=== PATIENT | female | born 1985 | race Caucasian/White ===

== ENCOUNTER → 2018-03-11 09:18 | Outpatient (CLI) | payer OTHER, SELFPAY ==
[2018-03-11 08:18] VITALS: BMI 18.3
[2018-03-11 09:42] LABS: Absolute Lymphocyte Count 1.81 X10^3/ul (0.83-4.51); Absolute Neutrophil Count 7.2 X10^3/uL (2.0-7.7); Basophil# 0.06 X10^3/uL; Basophil% 0.6 % (0-1); Eosinophil# 0.09 X10^3/uL; Eosinophils% 0.9 % (0-5); Hematocrit 35.9 % (37-47); Lymphocyte # 1.81 X10^3/ul (4.0); Lymphocyte % 17.8 % (19-41); Mean Corp Hgb Conc 33.4 g/gl (32-36); Mean Corpuscular Hgb 34.5 pg (27.0-32.0); Mean Corpuscular Volume 103.2 fL (81-99); Mean Platelet Vol. 10.3 fl (6.2-12.0); Monocyte# 1.04 X10^3/uL; Monocyte% 10.2 % (0-10); Neutrophil # 7.15 X10^3/uL (2.7-7.7); Neutrophil % 70.2 % (47-70); Platelet Count 425 K/mm3 (150-450); RBC Distribution Width CV 12.8 % (11.6-14.6); RBC Distribution Width SD 47.2 fl (35.1-43.9); Red Blood Count 3.48 M/mm3 (4.2-5.4); White Blood Count 10.2 K/mm3 (4.4-11.0)
[2018-03-11 09:44] LABS: POSITIVE COUNT NO; POSITIVE DIFFERENTIAL NO; POSITIVE MORPHOLOGY NO
[2018-03-11 11:14] LABS: HIV - WCH Non-Reactive (Nonreactive)
[2018-03-11 17:18] LABS: Chlamydia Trachomatis by PCR Negative (Negative); Neisserai gonorrhoeae by PCR Negative (Negative); Probe Check PASS; Sample Adequacy Control PASS; Specimen Processing Control PASS
[2018-03-12 09:39] LABS: HEPATITIS B SURFACE AG Negative (Negative)
[2018-03-13 00:15] LABS: Rapid Plasmin Reagin (RPR) NONREACTIVE (NONREACTIVE)
[2018-03-15 11:26] LABS: HPV APTIMA, High Risk Negative (Negative)
--- OUTSIDE RECORDS SUMMARY | 2018-05-16 01:10 | XMS RPT_ITS ---
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 Slight LAB HJB(LOINC) [place] Few Bodies LAB ECHN(LOINC ) Echinocytes Few Performed By: #### LIP, GFR, CMP, CBC, ADIFF, MORPH, ANEU #### [place] [address] .NEUABS Collected: 12/25/2017 Status: F Source: [facility] 6:51 PM [facility] REPOSITORY TYPE CODE TESTS RESULT OUT OF REFERENCE UNITS RANGE LAB ANEU(LOINC) 2.25-8.10 10 3/mcL Neutrophil, 2.90 Absolute Performed By: #### LIP, GFR, CMP, CBC, ADIFF, MORPH, ANEU #### [facility] [address] [place], [place] [id number] CT ABDOMEN/PELVIS Observed: 12/24/2017 Status: F Source: [place] W/CONTRAST 9:30 PM [facility] EM[facility]PART[facility] REPOSITORY ORIGINAL CT ABDOMEN/PELVIS W/CONTRAST CLINICAL STATEMENT: GENERALIZED ABDOMINAL TENDERNESS, SURGERY IN THE ABDOMEN, right-sided back pain x3 weeks getting worse with nausea the liver resection, splenectomy COMPARISON: 07/14/2017 CT abdomen TECHNIQUE: Axial images were obtained from the lung bases through the pubic symphysis after the administration of contrast. Coronal reformatted images were generated from the axial dataset. This exam wa s performed according to our departmental dose optimization program, and includes the following measures where applicable: automated exposure control, adjustment of the mAs and/or kVp according to patie nt size and/or exam, and an iterative reconstruction algorithm. FINDINGS: The included lung bases are clear. There is no visible pleural or pericardial effusion. The liver, adrenal glands, and pancreas are within normal limits. The gallbladder is contracted. There is been prior splenectomy. The kidneys are symmetric in size and enhancement. The ureters are case l in course. The bladder is largely distended. The stomach is largely distended and filled with air-fluid level and contrast material. There is no small bowel or colonic dilatation or wall thickening. No evidence of acute appendicitis. There is a mo derate amount of stool throughout the colon and in the rectum. There may be mild uncomplicated LEFT colon diverticulosis without diverticulitis. No free intraperitoneal air is identified. The aorta is normal in caliber. There is no lymphadenopathy. Uterus and adnexal structures are grossly unremarkable. There is a small amount of free pelvic fluid, which may be physiologic at this patient's age. There are mild multilevel degenerative changes of the spine. There is no visible fracture or aggressive osseous lesion. Paraspinal musculature is symmetric and unremarkable. IMPRESSION: No obvious acute process is seen. There is a large amount of ingested food material in the stomach that may be incidental, less likely from gastroparesis. Evaluate clinically and follow-up as warranted. Moderate fecal loading of the colon also. I have personally reviewed the images of this examination and agree with the resident's findings and interpretation. Interpreted By: Michael Gregg MD Preliminary Report By: Milad Herbert DO Electronically Signed By: Michael Gregg MD Dictated Date: 12/24/2017 9:30:12 PM Prelim Date: 12/24/2017 9:37:11 PM Sign Date: 12/24/2017 10:03:49 PM XR SPINE LUMBAR Observed: 12/24/2017 Status: F Source: [facility] AP/LAT 8:03 PM [facility] REPOSITORY ORIGINAL XR SPINE LUMBAR AP/LAT CLINICAL STATEMENT: Low back pain COMPARISON: None FINDINGS: Lumbar lordosis is exaggerated but otherwise 5 lumbar type vertebral bodies show normal height and alignment. There is no disc space narrowing, spondylosis or spondylolysis. Mild L5-S1 facet a rthropathy. Symmetric normal SI joints. IMPRESSION: Mild L5-S1 facet arthropathy. Exaggerated lumbar lordosis may be simply postural or from muscle spasm. Interpreted By: Michael Gregg MD Preliminary Report By: Michael Gregg MD Electronically Signed By: Michael Gregg MD Dictated Date: 12/24/2017 11:19:25 PM Prelim Date: 12/24/2017 11:19:25 PM Sign Date: 12/24/2017 11:20:[address] ABDOMEN W/ Observed: 07/14/2017 Status: F Source: [facility] CONTRAST 2:00 PM [facility] REPOSITORY ORIGINAL CT ABDOMEN W/ CONTRAST This exam was performed according to our departmental dose optimization program, and includes the following measures where applicable: automated exposure control, adjustment of the mAs and/or kVp accord ing to patient size and/or exam, and an iterative reconstruction algorithm. CLINICAL STATEMENT: ABDOMINAL PAIN RADIATING TO BOWEL, HIGH LIPASE. COMPARISON: None FINDINGS: Limited images of the lung bases are unremarkable. The heart is not enlarged. There is a paucity of intra-abdominal fat. The liver, gallbladder, bilateral adrenal glands, RIGHT kidney, and pancreas are unremarkable. Splenectomy. There is a subcentimeter LEFT renal lesion which is too small to accurately characterize but may reflect a cyst. No bowel dilatation. The aorta is not dilated. No lymphadenopathy is seen. No acute osseous findings. IMPRESSION: No acute findings. 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 Is patient in pain?: No Allergies No Known Allergies Allergy (Unverified 05/19/17 13:24) Medications etonogestrel-ethinyl estradiol 0.12 mg -0.015 mg/24 hr vaginal ring 1 vag ring VAGINAL ONCE 21 Days #1 ea 05/19/17 [Rx Confirmed 05/19/17] Is last menstrual period known: Yes Last Menstral Period: 04/28/17 Post menopausal: No Patient : No : No PFSH Surgical History delivery delivered (Acute) H/O splenectomy (Acute) ORIF left elbow (Acute) Family History Grandfather Heart disease Diabetes Father Hypertension Unknown Kidney disease Social History Smoking Status: Never smoker alcohol intake: never substance use type: does not use caffeine: Yes frequency: 3-4 times per week seatbelt use: always do you feel safe at home: Yes 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 she is doing well but has some left rib irritation under her left breast. sHE DENIES any rash or other complaints. Female Reproductive History Last Menstral Period: 04/28/17 Pregancy History 1 Elective abortions Hx Para 1 Spontaneous abortions Past Pregnancies Del. DatName GA/WeeksOutcome Route [facility] Ruby Montelongo LgAnestheILel LocaProviderFOB e ht en ia tn Unknown 2017 Ray39 live birC-sectio Female [place] a - fuln l term ROS Const Constitutional: Denies poor appetite, headache(s), fever(s), increased appetite, weight gain, weight loss or fatigue Cardio Card: Denies chest pain Resp Resp: Denies dyspnea or cough GI GI: Reports as per HPI; denies vomiting, nausea, abdominal pain or constipation : Reports as per HPI; denies urinary urgency, vaginal discharge, urinary frequency, vaginal itching, vaginal odor, vaginal dryness, urinary incontinence, urinary hesitancy, difficulty urinating, painful urination or nipple discharge Skin Skin/Breast: Denies breast lump, breast pain, breast skin changes, nipple discharge or change in hair Exam Const General: cooperative, healthy appearing, comfortable, no acute distress, well developed Nutritional Appearance: average body habitus Orientation: alert HENMT Head: normal to inspection, normocephalic Neck Neck: normal visual inspection, trachea midline Thyroid: thyroid normal Resp Effort AND Inspection: normal respiratory effort Skin General: no rashes or lesions noted Assessment AND Plan Problems 1. Encounter for surveillance of vaginal ring hormonal contraceptive device Z30. Plan continue nuvaring fu for annual exam Medications New: etonogestrel-ethinyl estradiol 0.12-0.015 mg/24 hr (NuvaR1 vag ring Vaginal ONCE 3 weeks ing) Discontinued: etonogestrel-ethinyl estradiol 0.12-0.015 mg/24 hr (NuvaRing) D1 vag ring Vaginal Q3W iscontinued Reason: Duplicate Order Coding Level of Care Code Off vis,est,level 4 Diagnoses Encounter for surveillance of vaginal ring hormonal contraceptive device Z30.44 Contraceptive encounter type: surveillance Contraceptive type: vaginal ring 05/19/17 1425 <Electronically signed by Naz Mayfield MD> Date Naz Mayfield MD Cosigner Signature: Date (if applicable) CC: ALLERGIES ALLERGIES DATE TYPE / CODE NAME / CODE REACTION SEVERITY SOURCE 03/11/2018 Drug No Known Unknown [facility] Allergy/4160 Allergies/F00 Hospital 83361(SNOMED [id number](RXNOR Repository CT) M) ENCOUNTERS ENCOUNTERS ADMIT/DISCHARGE ACCOUNT NUMBER ADMITTING ENCOUNTER LOCATION SOURCE CLASS 03/20/2018 [id number] Ambulatory BMSBuilding: [place] BMS.[facility] Repository 03/11/2018 [id number] Ambulatory [facility] ding:PAVLAB Repository 03/11/2018/03/11/19 [id number] Ambulatory BMSBuilding: [place] [address] BMS.[facility] Repository 12/25/2017/12/26/19 [id number] Emergency ABuilding:ER [place] [facility] Repository 12/24/2017/12/25/19 [id number] GUDLA, Ambulatory AULTMANBuild [place] [address] KAMLA ing:XRAY [facility] Repository 07/14/2017/07/15/19 [id number] Ambulatory [place] [address] [facility] 05/19/2017/05/20/19 [id number] Ambulatory BMSBuilding: [address] [address] [facility]MS[facility] Repository PAYERS PAYERS ENCOUNTER GUARANTOR PAYER SUBSCRIBER SOURCE 03/20/2018 SARAI Russell Primary ANDREW TUCKERMAN13984 Insurance:AETNANiles GRASSMANDOB: [facility], Number: [id number] [address]Yzr: [id number] Repository Date:1757-52-30[address] (SG) [address]LMER [address] [address]UZ: 03/20/2018 Secondary NOT GIVENUNK [place] Insurance:SELF PAY [facility] Number: Effective Repository Date:2018-03-20 03/11/2018 SARAI Yvonne Primary ANDREW Vergara [id number] Insurance:AETNAPolicy GRASSMANDOB: [facility], Number: [id number] [facility] [address]Hfn: [id number] Repository Date:2432-83-47[address] () [address] [address]CE: 03/11/2018 Secondary NOT GIVENUNK [place] Insurance:SELF PAY [facility] Number: Effective Repository Date:2018-03-11 03/11/2018 SARAI [facility] ANDREW Vergara [id number] Insurance:AETNAPolicy GRASSMANDOB: [facility], Number: [id number] [address]Zon: [id number] Repository Date:1601-33-34[address] () [place] [address]ZH: 03/11/2018 Secondary NOT GIVENUNK [place] Insurance:SELF PAY [facility] Number: Effective Repository Date:2018-03-11 12/25/2017 SARAI Russell [facility] GRASSMANDOB: Insurance:AETNA GRASSMANDOB: Foundation [id number] NACPolicy Number: [id number] Repository [facility] [id number] [address] [place], [place] Date:2017-12-25 [place] [address]~BENJAMIN@ [id number] [id number]: [phone]) CAROLERocael: Name:RON Arias [id number] [place] [address] ()Tel: [phone]: [phone] 12/24/2017 SARAI [facility] GRASSMANDOB: Insurance:AETNA GRASSMANDOB: [facility] [id number] NACPolicy Number: [id number] Repository [facility] [id number] [address] [place], [place] Date:2017-07-02 [place] [address]Zmj: [phone] [phone]: (HP) Name:[address] [address]CDDELMER [address]USTILLOS (HP)Tel: [phone]: ([phone] 07/14/2017 SARAI [facility] GRASSMANDOB: Insurance:AETNA GRASSMANDOB: [facility] [id number] NACPolicy Number: [id number] Repository [facility] [id number] [address] [place], [place] Date:2017-07-[address] [facility], [place] [address]Ilm: [phone] [phone]: (HP) Name:[phone] [address]ADEL[address]ILL[address] ()Tel: [phone]: [phone] 05/19/2017 Sarai [facility] Center[facility] HernandezL[facility] CityCalvary [id number] Insurance:AETNAPolicy GRASSMANDOB: [facility], Number: [id number] [facility] [address]Irw: [id number] Repository Date:9662-74-26FY [address]OX (HP) [address]GBDELMER [address] [address]EJ: 05/19/2017 Secondary NOT GIVENUNK [place] Insurance:SELF PAY [facility] Number: Effective Repository Date:2017-05-19
== END ==
PROVIDERS: Referring Provider Obstetrics & Gynecology; Visit Provider Obstetrics & Gynecology
DX: Z34.90 Encounter for supervision of normal pregnancy, unspecified, unspecified trimester (principal); Z12.4 Encounter for screening for malignant neoplasm of cervix
CPT/HCPCS: 36415; 85025; 86060; 86592; 86703; 86762; 86850; 86870; 86900; 86905; 87086; 87340; 87491; 87591; 87624; 88175; G0145

== ENCOUNTER → 2018-05-02 10:59 | Outpatient (CLI) | payer OTHER, SELFPAY ==
[2018-04-10 16:13] VITALS: BMI 18.3
== END ==
PROVIDERS: Obstetrics & Gynecology
DX: O36.1920 Maternal care for other isoimmunization, second trimester, not applicable or unspecified (principal); Z3A.00 Weeks of gestation of pregnancy not specified
CPT/HCPCS: 36415; 86900

== ENCOUNTER → 2018-05-06 16:57 | Outpatient (CLI) | payer OTHER, SELFPAY ==
[2018-05-06 16:17] VITALS: BMI 18.3
== END ==
PROVIDERS: Referring Provider Nurse Practitioner Women's Health; Visit Provider Nurse Practitioner Women's Health
DX: Z36.9 Encounter for antenatal screening, unspecified (principal)
CPT/HCPCS: 36415

== ENCOUNTER → 2018-07-31 | Outpatient (CLI) | payer OTHER, SELFPAY ==
[2018-07-31 16:55] LABS: Hematocrit 34.5 % (37-47); Hemoglobin 11.4 g/dl (12.0-15.0); Mean Corpuscular Hgb 34.5 pg (27.0-32.0); Mean Corpuscular Volume 104.5 fL (81-99); Mean Platelet Vol. 11.4 fl (6.2-12.0); Platelet Count 540 K/mm3 (150-450); RBC Distribution Width CV 12.3 % (11.6-14.6); RBC Distribution Width SD 45.7 fl (35.1-43.9); White Blood Count 13.4 K/mm3 (4.4-11.0)
[2018-07-31 17:02] LABS: Differential Indicated MANUAL DIFF; POSITIVE COUNT YES; POSITIVE DIFFERENTIAL NO; POSITIVE MORPHOLOGY YES
[2018-07-31 17:13] LABS: Glucose Challenge Gest 1H 50g 119 mg/dL (70-140)
[2018-07-31 17:16] LABS: Eosinophil 1 % (0-5); Lymphocyte 20 % (19-41); Monocyte 8 % (0-10); Neutrophil-Segmented 71 % (47-70); Total Cells Counted 100 (MANUAL DIFF)
[2018-07-31 17:17] LABS: Macrocytosis 1+; Platelet Estimate MKD INC (ADEQ); Red Cell Morphology N CHROM NORMAL (NORM C&C)
[2018-08-01 00:40] LABS: Absolute Lymphocyte Count 2.68 X10^3/ul (0.83-4.51); Absolute Neutrophil Count 9.5 X10^3/uL (2.0-7.7)
[2018-08-03 12:59] LABS: Pathologist Review Reviewed
== END | disposition home or self-care (01) ==
PROVIDERS: Referring Provider Nurse Practitioner Women's Health; Visit Provider Nurse Practitioner Women's Health
DX: O09.90 Supervision of high risk pregnancy, unspecified, unspecified trimester (principal); O26.899 Other specified pregnancy related conditions, unspecified trimester; R79.9 Abnormal finding of blood chemistry, unspecified; Z3A.00 Weeks of gestation of pregnancy not specified
CPT/HCPCS: 36415; 82950; 85025

== ENCOUNTER 2018-09-24 17:20 | Outpatient (CLI) | payer OTHER, SELFPAY ==
[2018-09-11 15:26] VITALS: BMI 18.3
[2018-09-24 17:35] VITALS: BMI 24.8
--- NOTE | 2018-09-24 17:43 | NURSING ---
pt here today for an injection of celestone 12 mg im, pt is scheduled for an elective c section 09/30. section scheduled at 37 wks d/t antibody diagnosis see Tran's note.
[2018-09-24] MEDS: Betamethasone/Betamethasone 30 MG/5 ML Vial 12 MG IM (17:52)
--- NOTE | 2018-10-01 05:55 | OB.TRI.PN ---
Progress Notes Date of Service: 09/24/18 Progress Note: celestone injection for prematurity Multi Select Codes - Urinary/Genital Urinary/Genital CPT Codes: Other Procedure See Report - no charge
== END 2018-09-24 17:56 | disposition home or self-care (01) ==
LOC: WPOUT 17:33 → WP 17:34
PROVIDERS: Visit Provider Obstetrics & Gynecology
DX: O26.899 Other specified pregnancy related conditions, unspecified trimester (principal); Z3A.00 Weeks of gestation of pregnancy not specified
CPT/HCPCS: 96372; 99218; G0378; J0702

== ENCOUNTER 2018-09-25 17:10 | Outpatient (CLI) | payer OTHER, SELFPAY ==
[2018-09-25 14:40] VITALS: BMI 24.8
[2018-09-25 17:48] LABS: Protein, Urine (Random) 43.6 mg/dL (<11.9); Protein:Creat Ratio 211 mg/g CRE (0-200)
[2018-09-25] MEDS: Betamethasone/Betamethasone 30 MG/5 ML Vial 12 MG IM (18:49)
[2018-09-25 19:38] VITALS: BMI 24.7
--- NOTE | 2018-10-01 06:00 | OB.TRI.PN ---
Progress Notes Date of Service: 09/25/18 Progress Note: celestone shot number 2 for prematurity Laboratory Studies: Laboratory Tests 09/25/18 Range/Units 17:11 U Random Total Protein 43.6 H (<11.9) mg/dL Urine Creatinine 207.00 (NO RANGE EST.) mg/dL Protein/Creatinin Ratio 211 H (0-200) mg/g CRE Multi Select Codes - Urinary/Genital Urinary/Genital CPT Codes: Other Procedure See Report - no charge
== END 2018-09-25 19:45 | disposition home or self-care (01) ==
LOC: LABSPEC 17:10 → WPOUT 18:43 → WP 18:44
PROVIDERS: Referring Provider Obstetrics & Gynecology; Visit Provider Obstetrics & Gynecology
DX: O26.899 Other specified pregnancy related conditions, unspecified trimester (principal); Z3A.00 Weeks of gestation of pregnancy not specified
CPT/HCPCS: 82570; 84156; 87081; 96372; 99218; G0378; J0702

== ENCOUNTER 2018-09-30 05:00 | Inpatient (IN) | payer OTHER, SELFPAY ==
[2018-09-30] VITALS (21 sets, daily range): BP systolic 89–127; BP diastolic 43–66; PULSE 53–102; RESP 16–18; TEMP 36.3–37.1; O2SAT 94–99; BMI 25.4
[2018-09-30] MEDS: Lactated Ringers 1,000 ML 999 ML IV (05:45)
[2018-09-30 06:08] LABS: Absolute Lymphocyte Count 3.61 X10^3/uL (0.83-4.51); Absolute Neutrophil Count 8.1 X10^3/uL (2.0-7.7); Basophil# 0.07 X10^3/uL; Basophil% 0.5 % (0-1); Eosinophil# 0.08 X10^3/uL; Eosinophils% 0.6 % (0-5); Hematocrit 30.4 % (37-47); Hemoglobin 9.8 g/dL (12.0-15.0); Lymphocyte # 3.61 X10^3/ul (4.0); Lymphocyte % 25.3 % (19-41); Mean Corp Hgb Conc 32.2 g/dL (32-36); Mean Corpuscular Hgb 31.9 pg (27.0-32.0); Mean Platelet Vol. 11.9 fl (6.2-12.0); Monocyte# 1.64 X10^3/uL; Monocyte% 11.5 % (0-10); Neutrophil # 8.14 X10^3/uL (2.7-7.7); Neutrophil % 57.1 % (47-70); POSITIVE DIFFERENTIAL YES; Platelet Count 336 K/mm3 (150-450); RBC Distribution Width CV 13.5 % (11.6-14.6); RBC Distribution Width SD 48.1 fl (35.1-43.9); Red Blood Count 3.07 M/mm3 (4.2-5.4); White Blood Count 14.3 K/mm3 (4.4-11.0)
[2018-09-30 06:09] LABS: Differential Indicated SCAN CRITERIA MET; NRBC Flagged by Analyzer 4.2 % (0-5)
[2018-09-30 06:40] LABS: Differential Comment SCANNED
[2018-09-30 06:41] LABS: Macrocytosis 1+; Platelet Estimate ADEQUATE (ADEQ); Polychromasia 1+
[2018-09-30] MEDS: Sodium Citrate/Citric Acid 30 ML UDC PO (07:17)
[2018-09-30] MEDS: Lactated Ringers 1,000 ML 150 ML IV (07:18)
[2018-09-30] MEDS: Cefazolin 2 GM in 0.9% Normal Saline 100 ML IV (07:20)
--- NOTE | 2018-09-30 07:37 | PCM.HPOB.BLA ---
- Problem List (1) GBS (group B Streptococcus carrier), +RV culture, currently Status: Acute (2) Supervision of high risk in third trimester Status: Acute (3) Status: Acute Qualifiers: Comment: NIPT low risk male await MFM recommendation. Pt is negative CF carrier (4) History of delivery Status: Acute Comment: plans RLTCS 37-38 weeks (5) Supervision of high-risk Status: Acute Qualifiers: Comment: JOCELIN 10/21/18 PC Itzel Andrew (6) Anti-S antibody present Status: Acute Comment: Plan co-care with MFM start weekly Cerebral doppler- 05/14/18: peak systolic is <1.5 MOM, which is low risk for anemia repeat 4 wks.us normal. 05/14/18 titers are low 1:4-1:2. 07/06/18MCA dopplers not performed d/t low titers. MCA dopplers 1-2 weeks if titers greater than 1:16. Growth US q4wks 07/17/18 titer 1:8 (7) Anti-Y antibody Status: Acute History and Physical Date of Admission: 09/30/18 Intake Vital Signs 09/25/18 Body Mass Index (BMI) 24.8 09/25/18 Height 5 ft 5 in 09/25/18 Weight: 149 lb 8 oz 09/25/18 Body Mass Index (BMI) 24.8 09/25/18 Blood Pressure 112/68 Intake Visit Reasons: 36 week ob Critical Care Physician Assistant Required: No Is patient in pain?: No Allergies No Known Allergies Allergy (Verified 09/25/18 14:39) Medications vitamin#30 30 mg iron-10 mg iron-folic acid 1 mg-omg3 capsule 1 cap PO DAILY cap 03/11/18 [History Confirmed 09/24/18] Last Menstral Period: 01/14/18 Zika: Zika virus screening: Negative : No PFSH PFSH Medical History Anemia affecting first (Acute) Gestational diabetes mellitus (GDM) affecting first (Acute) Mild pre-eclampsia affecting first (Acute) Surgical History delivery delivered (Acute) H/O splenectomy (Acute) ORIF left elbow (Acute) Family History Grandfather Heart disease Diabetes Father Hypertension Unknown Kidney disease Social History (Updated 09/25/18 @ 15:19 by Naz May[place] MD) Smoking Status: Never smoker alcohol intake: never substance use type: does not use caffeine: Yes frequency: 3-4 times per week seatbelt use: always do you feel safe at home: Yes 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 Date Name GA/Weeks Outcome Route Bth Weight [facility] Itzel 39 live - full term Female [place] Delivery Date: On 03/11/18 @ 08:42 Naz [place] antibody disease, NRFHTs HPI 36 week ob: Details: BULL RAJPUT is a 32 year old who presents for routine OB visit. she is going to have a RLTCS at 37 weeks. OB Visit JOCELIN Calculator Estimated Delivery Date Method Current WG Current Estimate 10/21/18 LMP (Certain) 36w 2d Expected Delivery Route/Plan RLTCS Specific Issue/Plans flu vaccine: given tdap vaccine: given rhogam: na LARC form signed: declines labor support person: Andrew pain management: c section cut cord/dad catch: cord : no PP control planned: [] discussed possible routes of delivery and associated risks: [] special requests: [] Initial Weight: 115 lb Date EGA Weight BP Urine Prot Glucose FHR FuHt Pres Mov CTX Dilation Effaced St Visit Note 04/10/18 12w 2d 119 lb (+4 lb) 100/58 165 13 no vb lof 05/06/18 16w 0d 122 lb (+7 lb) 92/60 Negative Negative 136 No VB, LOF. Nausea gone. 06/05/18 20w 2d 128 lb (+13 lb) 100/64 155 small amount discharge blood, no lof or regular ctx. some fm 07/10/18 25w 2d 135 lb (+20 lb) 102/58 Negative Negative 150 no vb lof good fm no regular ctx repeat titer next week 07/31/18 28w 2d 137 lb 6 oz (+22 lb 6 oz) 104/68 Negative Negative 142 27 Active absent No VB, LOF. Doing well 08/14/18 30w 2d 138 lb 2 oz (+23 lb 2 oz) 90/64 Negative Negative 160 30 Active absent no vb lof good fm no regular ctx 08/28/18 32w 2d 139 lb 8 oz (+24 lb 8 oz) 104/58 Negative Negative 161 31 Active absent No VB, LOF. Doing well 09/11/18 34w 2d 146 lb (+31 lb) 92/64 Negative Negative 150 34 Active absent no vb lof good fm n oregular ctx 09/25/18 36w 2d 149 lb 8 oz (+34 lb 8 oz) 112/68 1+ Negative 140 36 Cephalic Active absent discussed with patient plan RLTCS at 37 weeks now due to isoimmunization, but normal MCA dopplers, low suspicion of anemia Visit Notes Visit Date: 09/25/18 ??discussed with patient plan RLTCS at 37 weeks now due to isoimmunization, but normal MCA dopplers, low suspicion of anemia ??Naz [place] MD on 09/25/18 Visit Date: 09/11/18 ??no vb lof good fm n oregular ctx ??Naz [place] MD on 09/15/18 Visit Date: 08/28/18 ??No VB, LOF. Doing well ??LOLLY Griffin on 08/28/18 Visit Date: 08/14/18 ??no vb lof good fm no regular ctx ??Naz [place] MD on 08/14/18 Visit Date: 07/31/18 ??No VB, LOF. Doing well ??LOLLY Griffin on 07/31/18 Visit Date: 07/10/18 ??no vb lof good fm no regular ctx repeat titer next week ??Naz [place] MD on 07/10/18 Visit Date: 06/05/18 ??small amount discharge blood, no lof or regular ctx. some fm ??Naz [place] MD on 06/05/18 Visit Date: 05/06/18 ??No VB, LOF. Nausea gone. ??YONATAN GriffinC on 05/06/18 Visit Date: 04/10/18 ??no vb lof ??Naz [place] MD on 04/10/18 ACOG First Trimester First Trimester: Desire for , Alcohol, Tobacco Cessation, Illicit/Recreational Drug/Substance Use, Intimate Partner Violence, Barriers to care, Unstable Housing, Communication Barriers, Environmental/Work Hazards, Anticipated Course of Care, Toxoplasmosis Precations, Use of Any medications, Sexual activity, Exercise, Dental Care, Sauna/Hot tub use, Seat Belt use, Childbirth classes/Hospital facilities, , Travel, Indications for US and Screening for Aneuploidy Second Trimester Second Trimester: Signs and Symptoms of Labor, Selecting a care provider, Reproductive Life Planning, Care Planning, Tobacco Cessation, Depression/Anxiety and Intimate Partner Violence Third Trimester Third Trimester: Pain Management Plans, Labor support person(s), Immediate Larc, Movement Monitoring and Infant Feeding Yes ; discussed Trial of Labor after Counseling or discussed Circumcision preference Diagnostics Diagnostics Labs Blood Type A POSITIVE 05/02/18 Antibody Screen POSITIVE H 03/11/18 Hct 34.5 % (37-47) L 07/31/18 Hgb 11.4 g/dl (12.0-15.0) L 07/31/18 Rubella IgG Antibody 55.0 IU/mL 03/11/18 RPR NONREACTIVE (NONREACTIVE) 03/11/18 Hep Bs Antigen Negative (Negative) 03/11/18 Chlam trachomat DNA PCR Negative (Negative) 03/11/18 N.gonorrhoeae DNA (PCR) Negative (Negative) 03/11/18 Glucose 1 Hr 50 gm 119 mg/dL (70-140) 07/31/18 Miscellaneous Test 07/31/18 Details: HIV: Urine Culture: Sequential Screen: NIPT Screen: ROS Const Reports system reviewed and no additional complaints, except as docu Card Reports system reviewed and no additional complaints, except as docu Resp Reports system reviewed and no additional complaints, except as docu GI Reports system reviewed and no additional complaints, except as docu, Reports nausea Reports system reviewed and no additional complaints, except as docu Musc Reports system reviewed and no additional complaints, except as docu Exam Const General: cooperative, healthy appearing, comfortable, anxious HENMT Head: normal to inspection Nose: external nose normal Face and sinus: normal facial exam Neck Neck: normal visual inspection, full ROM, no lymphadenopathy Thyroid: thyroid normal Chest Chest palpation & inspection: normal inspection of the chest Resp Effort & Inspection: normal respiratory effort GI Inspection: normal to inspection Palpation: soft, other (gravid uterus) Other: infant vertex and appropriate size for gestational age Other: Cervical Exam: Extrem General: pedal edema Results [id number] Office Urine Glucose Negative Last Edit by Roxana Mcwilliams on 09/25/18 14:39 Office Urine Protein 1+ Last Edit by Roxaan Mcwilliams on 09/25/18 14:39 Assessment & Plan Problems 1. Supervision of high risk in third trimester O09. 2. 36 weeks gestation of Z3A.36 NIPT low risk male await MFM recommendation. Pt is negative CF carrier 3. History of delivery Z98.891 plans RLTCS 37-38 weeks 4. Supervision of high risk in first trimester O09. JOCELIN 10/21/18 PC Itzel Andrew 5. Anti-S antibody present R79.9 Plan co-care with MFM start weekly Cerebral doppler- 05/14/18: peak systolic is <1.5 MOM, which is low risk for anemia repeat 4 wks.us normal. 05/14/18 titers are low 1:4-1:2. 07/06/18MCA dopplers not performed d/t low titers. MCA dopplers 1-2 weeks if titers greater than 1:16. Growth US q4wks 07/17/18 titer 1:8 6. Anti-Y antibody Plan plan RLTCS at 37 weeks per MFM recommendations. Orders Orders: POC Urinalysis 2 Dip (Clinic) Today Culture, Group B Streptococcus Today O09.93 Protein+Creatinine Ratio,Urine Today O09.93 Coding Level of Care Code OB Routine Diagnoses Supervision of high risk in third trimester O09.93 36 weeks gestation of Z3A.36 ??Weeks of gestation: 36 weeks History of delivery Z98.891 Supervision of high risk in first trimester O09.91 ??Trimester: first trimester Anti-S antibody present R79.9 Anti-Y antibody UPDATE- I have seen the patient and performed any clinically relevant updates to the history and physical exam. Naz [place] MD
[2018-09-30] MEDS: Oxytocin 30 units/NS 500 ml 30 UNITS/500 ML IV.SOLN 167 UNITS IV (07:48)
[2018-09-30] MEDS: Lactated Ringers 1,000 ML 100 ML IV (09:21)
[2018-09-30] MEDS: proCHLORPERazine 10 MG/2 ML Vial IV (10:28)
[2018-09-30 14:24] LABS: Pathologist Review Reviewed
[2018-09-30] MEDS: Ketorolac 30 MG/ML Syringe IV ×2 (15:39→21:29)
[2018-09-30] MEDS: 0.9% Saline Lock 10 ML Syringe IV (21:29)
--- NOTE | 2018-09-30 23:18 | NURSING ---
Pt. encouraged to try and use restroom for first void since catheter was discontinued.
[2018-10-01] VITALS (9 sets, daily range): BP systolic 95–103; BP diastolic 57–67; PULSE 53–80; RESP 14–18; TEMP 36.6–37.4; O2SAT 94–97
--- NOTE | 2018-10-01 00:50 | NURSING ---
Pt. encouraged to try and void again. Pt. educated that if she is not able to void by 0200 that a straight catheter will be placed to empty her bladder.
--- NOTE | 2018-10-01 01:30 | NURSING ---
Pt. still unable to void. This RN encouraged pt. to drink water, walk in hallways, use michael-bottle, and shower in order to encourage urination.
[2018-10-01] MEDS: 0.9% Saline Lock 10 ML Syringe IV ×4 (03:36→22:10)
[2018-10-01] MEDS: Ketorolac 30 MG/ML Syringe IV ×4 (03:36→22:10)
[2018-10-01 05:16] LABS: Hematocrit 26.6 % (37-47); Hemoglobin 8.6 g/dL (12.0-15.0); Mean Corp Hgb Conc 32.3 g/dL (32-36); Mean Corpuscular Hgb 32.1 pg (27.0-32.0); Mean Corpuscular Volume 99.3 fL (81-99); Mean Platelet Vol. 11.5 fl (6.2-12.0); Platelet Count 303 K/mm3 (150-450); RBC Distribution Width CV 13.4 % (11.6-14.6); RBC Distribution Width SD 47.5 fl (35.1-43.9); Red Blood Count 2.68 M/mm3 (4.2-5.4); White Blood Count 16.5 K/mm3 (4.4-11.0)
--- NOTE | 2018-10-01 05:27 | PCM.OPRPT ---
Problem List (1) GBS (group B Streptococcus carrier), +RV culture, currently Status: Acute (2) Supervision of high risk in third trimester Status: Acute (3) Status: Acute Qualifiers: Comment: NIPT low risk male await [facility] recommendation. Pt is negative CF carrier (4) History of delivery Status: Acute Comment: plans RLTCS 37-38 weeks (5) Supervision of high-risk Status: Acute Qualifiers: Comment: JOCELIN 10/21/18 PC Itzel Andrew (6) Anti-S antibody present Status: Acute Comment: Plan co-care with MFM start weekly Cerebral doppler- 05/14/18: peak systolic is <1.5 MOM, which is low risk for anemia repeat 4 wks.us normal. 05/14/18 titers are low 1:4-1:2. 07/06/18MCA dopplers not performed d/t low titers. MCA dopplers 1-2 weeks if titers greater than 1:16. Growth US q4wks 07/17/18 titer 1:8 (7) Anti-Y antibody Status: Acute Delivery Classification: Scheduled Final JOCELIN: 10/21/18 Gestational age: 37 Weeks and 0 Days Indications: positive maternal antibodies over critical value, no sign of anemia Indications for : Repeat Elective Description of Procedure: The patient is a 32 yo @ 37weeks presented for repeat due to elevated maternal antibodies in the absence of anemia. she was recommended for delivery by [facility]. Spinal anesthesia was placed without difficulty. Bryant catheter was placed. The patient was placed in the dorsal supine position with leftward tilt. Patient was prepped and draped in the normal sterile fashion. Pfannenstiel skin incision was made with the scalpel and carried through to the underlying layer of fascia with the scalpel. Fascia was nicked in the midline and the incision extended laterally. The rectus bellies were dissected off superiorly and inferiorly with out complication both sharply and bluntly. The peritoneum was entered digitally. The incision was stretched and a low transverse uterine incision was made with the scalpel. The infant's head was delivered atraumatically followed by the anterior and posterior shoulders without complication the rest of the delivered. The cord was clamped and cut and the was handed off to awaiting nurse. The placenta was delivered spontaneously immediately following and was noted to be intact and have a three-vessel cord. The uterus was exteriorized cleared of all clots and debris, and the incision was closed in a double layer closure using #1 Monocryl. The uterus was returned to the maternal abdomen and gutters were cleared of all clots and debris. The ovaries and fallopian tubes were noted to be within normal limits. The peritoneum was closed with 3-0 Monocryl in a running fashion. Fascia was closed with 0 PDS in a running fashion. Subcutaneous tissue was copiously irrigated and the skin was closed with 3-0 Monocryl in a subcuticular fashion. Steri-Strips and Mepilex dressing were applied without complication. Patient was taken to recovery in stable condition. Amniotic Membrane Rupture Type: Spontaneous Amniotic Fluid Description: Clear Placenta Disposition: [facility] Cord Entanglement: None Cord Vessel Description: 3 Vessels Esitmated Blood Loss (ml): 700 Infant Gender: Male Delayed cord clamping: Yes Pre-op Antibiotic Given: Ancef 2 grams IV x1 Complications: None - Admit VTE Documentation VTE Present on Admission: No VTE Mechan Device Prophylaxis: SCD's Multi Select Codes - Urinary/Genital Urinary/Genital CPT Codes: [address] [facility]
--- NOTE | 2018-10-01 08:29 | NURSING ---
Old drainage noted.
[2018-10-02] MEDS: oxyCODONE 5 MG Tablet PO ×3 (01:33→18:28)
[2018-10-02 01:38] VITALS: BP 109/71; PULSE 78; RESP 18; TEMP 36.6
[2018-10-02] MEDS: Ketorolac 30 MG/ML Syringe IV ×3 (03:06→15:14)
[2018-10-02] MEDS: 0.9% Saline Lock 10 ML Syringe IV ×2 (03:06→21:42)
--- NOTE | 2018-10-02 06:44 | PCM.PN.OB ---
Subjective: doing well no complaints pain controlled no CP SOB N V ambulating well tolerating po lochia moderate, going well - Physical Exam General: Alert, Oriented x3 Vital Signs Temp Pulse Resp BP Pulse Ox 97.9 F 78 18 109/71 95 10/02/18 01:38 10/02/18 01:38 10/02/18 01:38 10/02/18 01:38 10/01/18 15:00 Oxygen Delivery Method Room Air Weight: 152 lb 12.485 oz Body Mass Index (BMI) 25.4 Intake and Output for Last 24 Hours 09/30/18 10/01/18 10/02/18 23:59 23:59 23:59 Intake Total 2402 / 2402 1200 / 1200 Output Total 1250 / 1250 1000 / 1000 Balance 1152 / 1152 200 / 200 Medical Necessity - Tobacco Use Smoking Status: Never smoker Assessment/Plan All Active Problems (Last Reviewed 09/25/18 @ 14:40 by Roxana Mcwilliams) GBS (group B Streptococcus carrier), +RV culture, currently (Acute) Supervision of high risk in third trimester (Acute) (Acute) History of delivery (Acute) Supervision of high-risk (Acute) Anti-S antibody present (Acute) Anti-Y antibody (Acute) Cervical polyp (Resolved) Maternal atypical antibody (Resolved) s/p LTCS PPD # 2 1. routine post care 2. breast feeding- support given 3. rh positive 4. rubella immune
[2018-10-02 08:25] VITALS: BP 113/64; PULSE 76; RESP 16; TEMP 36.7
[2018-10-02 13:48] VITALS: BP 94/55; PULSE 77; RESP 16; TEMP 36.7
[2018-10-02 20:08] VITALS: BP 103/70; PULSE 75; RESP 18; TEMP 36.6; O2SAT 95
[2018-10-03 02:00] VITALS: BP 115/68; PULSE 85; RESP 18; TEMP 36.7
--- NOTE | 2018-10-03 04:50 | DCINST_ITS ---
Discharge Diet: No Restrictions Discharge Activity: May Not Drive - for 2 weeks, May not drive while taking narcotic pain medications., May Shower, May Take a Tub Bath - in 7 days May resume sexual activity in: 4-6 weeks Lifting Restrictions: 20 pounds Additional Activity Instructions:: Nothing in the vagina for 4-6 weeks. You may return to work/school in 6 weeks. Call your doctor if your incision/area has: Continuous Slow Oozing, Sudden Increased Bleeding, Increased Pain/ Swelling, Increased Redness, Foul Smelling Discharge Call your doctor if you observe: Fever of 101 or Higher, Using more than one pad per hour - for 2 hours Suture Line Care: Avoid Pulling/Pushing, Avoid Pinching/Bending Cleanse incision/area with: Keep Dressing Clean & Dry Additional Instructions: If you experience any of the following, contact your healthcare provider. * Bleeding that soaks a pad every hour for 2 hours * Fever 100.4 or higher * Unrelieved incision or abdominal pain * Swelling, redness, discharge or bleeding from your incision or episiotomy site * Your incision begins to separate * Problems urinating (including inability to urinate or burning while urinating). * Visual changes * Severe headache * Flu-like symptoms * Pain or redness in one of both of your breasts * Pain, warmth, tenderness or swelling in your legs, especially the calf area * Frequent nausea and vomiting * Symptoms of depression or anxiety If you experience any of the following, call 911 or go to the nearest Emergency Room. * Chest pain * Problems breathing * Seizure activity * Partial or complete paralysis of a body part, slurred speech, weakness or drooping of the face, or a sudden inability to walk or hold your balance Allergies/Adverse Reactions: Allergies No Known Allergies Allergy (Verified 09/30/18 05:41) Medications to take at Discharge vitamin#30 30 mg iron-10 mg iron-folic acid 1 mg-omg3 capsule 1 cap PO DAILY cap 03/11/18 Ascorbic Acid/Ascorbate Sodium [Vitamin C 250 mg Tablet Chew] 250 mg PO QHS 09/30/18 Naproxen [Naprosyn] 250 - 500 mg PO Q8H PRN PRN #30 tab 10/03/18 Oxycodone HCl/Acetaminophen [Percocet 5-325] 1 - 2 tab PO Q4H PRN PRN 7 Days #15 tab 10/03/18 The following prescriptions were given: Naproxen [Naprosyn] 250 - 500 mg PO Q8H PRN PRN #30 tab PRN Reason: MILD PAIN Transmission Status: Pending to [facility] Oxycodone HCl/Acetaminophen [Percocet 5-325] 1 - 2 tab PO Q4H PRN PRN 7 Days #15 tab PRN Reason: Pain Transmission Status: Sent to [facility] Follow-Up: Call to make an appointment with your doctor for an incision check in 1-2 weeks. You will also need a 6 week post- follow up appointment. Test results from this visit will be discussed in further detail at your follow- up appointment, if applicable. Please Follow Up With: Naz [place] MD - Call to make an appointment for an incision check in 1-2 [phone] When: You will need a post- check in 6 weeks. Primary Care Physician: Hood Chacon MD [Primary Care Provider] -
[2018-10-03] MEDS: oxyCODONE 5 MG Tablet PO (06:17)
--- NOTE | 2018-10-03 06:56 | PCM.PN.OB ---
Subjective: doing well no complaints pain controlled no CP SOB N V ambulating well tolerating po lochia moderate, going well - Physical Exam General: Alert, Oriented x3 Vital Signs Temp Pulse Resp BP Pulse Ox 98.0 F 85 18 115/68 95 10/03/18 02:00 10/03/18 02:00 10/03/18 02:00 10/03/18 02:00 10/02/18 20:08 Oxygen Delivery Method Room Air Weight: 152 lb 12.485 oz Body Mass Index (BMI) 25.4 Intake and Output for Last 24 Hours 10/01/18 10/02/18 10/03/18 23:59 23:59 23:59 Intake Total 1200 / 1200 Output Total 1000 / 1000 Balance 200 / 200 Medical Necessity - Tobacco Use Smoking Status: Never smoker Assessment/Plan All Active Problems (Last Reviewed 09/25/18 @ 14:40 by Roxana Mcwilliams) GBS (group B Streptococcus carrier), +RV culture, currently (Acute) Supervision of high risk in third trimester (Acute) (Acute) History of delivery (Acute) Supervision of high-risk (Acute) Anti-S antibody present (Acute) Anti-Y antibody (Acute) Cervical polyp (Resolved) Maternal atypical antibody (Resolved) s/p LTCS PPD # 3 1. routine post care 2. breast feeding- support given 3. rh positive 4. rubella immune
[2018-10-03 08:08] VITALS: BP 105/65; PULSE 66; RESP 16; TEMP 36.4; O2SAT 95
== END 2018-10-03 12:00 | disposition home or self-care (01) | DRG 786 ==
PROVIDERS: Admitting Provider Obstetrics & Gynecology; Referring Provider Obstetrics & Gynecology; Visit Provider Obstetrics & Gynecology
PROC: (CPT 59514; principal; 2018-09-30 07:15)
DX: O65.5 Obstructed labor due to abnormality of maternal pelvic organs (principal); O60.14X0 Preterm labor third trimester with preterm delivery third trimester, not applicable or unspecified; O34.211 Maternal care for low transverse scar from previous cesarean delivery; O36.1930 Maternal care for other isoimmunization, third trimester, not applicable or unspecified; Z3A.37 37 weeks gestation of pregnancy; Z37.0 Single live birth
CPT/HCPCS: 85025; 85027; 86850; 86870; 86900; 99218; J7120; A4216; G0378; J2405

== ENCOUNTER → 2018-10-14 | Outpatient (CLI) | payer OTHER, SELFPAY ==
[2018-10-14 10:03] VITALS: BMI 25.4
== END | disposition home or self-care (01) ==
LOC: LABSPEC 17:23
PROVIDERS: Referring Provider Obstetrics & Gynecology; Visit Provider Obstetrics & Gynecology
DX: R30.0 Dysuria (principal)
CPT/HCPCS: 87086; 87088

== ENCOUNTER → 2019-03-22 16:34 | Outpatient (CLI) | payer BC, SELFPAY ==
[2019-03-22 18:03] LABS: hCG Titer Quant., Serum 60385 mIU/mL (1-3)
== END ==
PROVIDERS: Referring Provider Obstetrics & Gynecology; Visit Provider Obstetrics & Gynecology
DX: N91.2 Amenorrhea, unspecified (principal)
CPT/HCPCS: 36415; 84702

== ENCOUNTER → 2019-03-24 11:22 | Outpatient (CLI) | payer BC, SELFPAY ==
--- NOTE | 2019-03-24 11:23 | US_ITS ---
STUDY: FIRST TRIMESTER OBSTETRICAL ULTRASOUND REASON FOR EXAM: Female, 33 years old DATING - LMP UNKNOWN LMP: Unknown. TECHNIQUE: Transvaginal TECHNICAL QUALITY: Adequate. PRIOR ULTRASOUND: None. FINDINGS: There is a gestational sac in the lower uterine segment adjacent to the scar. The gestational sac has an irregular appearance.. The mean sac diameter (MSD) measures 2.2 cm, indicating an estimated gestational age (EGA) of 7 weeks, 2 days. The gestational sac shape is within normal limits. There is a visualized yolk sac. The yolk sac measures 3 mm. The placenta is non-visualized. There is visualization of a live embryo. The crown-rump length (CRL) measures 9 mm, indicating an estimated gestational age (EGA) of 7 weeks, 0 days. There is demonstrated cardiac activity with a heart rate of 74 bpm. The estimated gestation age (EGA) by US is 7 weeks, 1 days. The estimated date of delivery (JOCELIN) by US is November 09, 2019. The uterus measures 9.9 cm x 6.7 cm x 4.7 cm. There is evidence of a subchorionic bleed.. There is no demonstrated uterine fibroid. The cervix is closed. The right ovary measures 3.1 cm x 2.1 cm by 1.7 cm.. There is no right ovarian cyst. There is no visualized right adnexal mass or complex lesion. The left ovary measures 2.5 cm x 2.1 cm x 1.4 cm. There is no left ovarian cyst. There is no visualized left adnexal mass or complex lesion. There is no fluid in the cul de sac. US/Transvaginal w/Preg US IMPRESSION: Single live intrauterine gestation with a mean gestational age of 7 weeks and 1 day. The gestational sac is in the lower uterine segment adjacent to the scar from the recent section. This is suggestive of an ectopic . The referring physician was notified. Electronically Signed: Jeevan Singh, at 13:56 EST , Service support ,
== END ==
PROVIDERS: Referring Provider Obstetrics & Gynecology; Visit Provider Obstetrics & Gynecology
DX: O09.90 Supervision of high risk pregnancy, unspecified, unspecified trimester (principal); Z3A.00 Weeks of gestation of pregnancy not specified
CPT/HCPCS: 76817

== ENCOUNTER → 2019-09-13 | Outpatient (CLI) | payer BC, SELFPAY ==
[2019-09-13 11:26] LABS: Absolute Lymphocyte Count 2.12 X10^3/uL (0.83-4.51); Basophil# 0.08 X10^3/uL; Basophil% 1.4 % (0-1); Eosinophil# 0.05 X10^3/uL; Eosinophils% 0.9 % (0-5); Hematocrit 37.2 % (37-47); Hemoglobin 11.9 g/dL (12.0-15.0); Lymphocyte # 2.12 X10^3/ul (4.0); Lymphocyte % 36.2 % (19-41); Mean Corpuscular Hgb 31.6 pg (27.0-32.0); Mean Corpuscular Volume 98.7 fL (81-99); Mean Platelet Vol. 10.1 fl (6.2-12.0); Monocyte# 0.65 X10^3/uL; Monocyte% 11.1 % (0-10); NRBC Flagged by Analyzer 0 % (0-5); Neutrophil # 2.95 X10^3/uL (2.7-7.7); Neutrophil % 50.2 % (47-70); Platelet Count 534 K/mm3 (150-450); RBC Distribution Width CV 15.2 % (11.6-14.6); RBC Distribution Width SD 54.3 fl (35.1-43.9); Red Blood Count 3.77 M/mm3 (4.2-5.4); White Blood Count 5.9 K/mm3 (4.4-11.0)
[2019-09-13 11:43] LABS: Thyroid Stim Hormone (TSH) 2.61 uIU/mL (0.358-3.74)
== END | disposition home or self-care (01) ==
LOC: PAVLAB 11:01
PROVIDERS: Referring Provider Obstetrics & Gynecology; Visit Provider Obstetrics & Gynecology
DX: N93.9 Abnormal uterine and vaginal bleeding, unspecified (principal)
CPT/HCPCS: 36415; 84443; 85025

== ENCOUNTER → 2019-09-17 | Outpatient (CLI) | payer BC, SELFPAY ==
--- NOTE | 2019-09-17 15:49 | US_ITS ---
HISTORY: ABN UTERINE BLEEDING EXAMINATION: US Pelvis Non OB Complete With Transvaginal Imaging TECHNIQUE: Transabdominal and transvaginal (for optimal evaluation of the adnexa) pelvic ultrasound was performed. Grayscale, spectral waveform, and color flow Doppler evaluation of the adnexa. COMPARISON: None FINDINGS: UTERUS: anteverted. The uterus measures 6.7 x 4.4 x 3.8 cm. There is no uterine mass. The endometrial stripe measures 0.27 cm in AP diameter which is within normal limits. There is also a small amount of fluid within the cervical canal RIGHT OVARY: 2.88 x 1.52 x 2.29 cm with a volume of 5.25 mL. Non-enlarged, normal echogenicity. Follicular cysts vascular flow is noted LEFT OVARY: 2.96 x 2.17 x 3.35 cm with a volume of 11.27 mL. Non-enlarged, normal echogenicity. Vascular flow is noted FREE FLUID: None. US/Pelvic (Non ) IMPRESSION: Minimal fluid seen within the endocervical canal Follicular cysts are seen bilaterally in the ovaries. at 0419 Reported and signed by: Audrey Mosqueda DO Electronically Signed: Audrey Mosqueda DO at 4:18 EDT Tel , Service support ,
--- NOTE | 2019-09-17 15:49 | US_ITS ---
HISTORY: ABN UTERINE BLEEDING EXAMINATION: US Pelvis Non OB Complete With Transvaginal Imaging TECHNIQUE: Transabdominal and transvaginal (for optimal evaluation of the adnexa) pelvic ultrasound was performed. Grayscale, spectral waveform, and color flow Doppler evaluation of the adnexa. COMPARISON: None FINDINGS: UTERUS: anteverted. The uterus measures 6.7 x 4.4 x 3.8 cm. There is no uterine mass. The endometrial stripe measures 0.27 cm in AP diameter which is within normal limits. There is also a small amount of fluid within the cervical canal RIGHT OVARY: 2.88 x 1.52 x 2.29 cm with a volume of 5.25 mL. Non-enlarged, normal echogenicity. Follicular cysts vascular flow is noted LEFT OVARY: 2.96 x 2.17 x 3.35 cm with a volume of 11.27 mL. Non-enlarged, normal echogenicity. Vascular flow is noted FREE FLUID: None. US/Transvaginal Non- IMPRESSION: Minimal fluid seen within the endocervical canal Follicular cysts are seen bilaterally in the ovaries. at 0419 Reported and signed by: Audrey Mosqueda DO Electronically Signed: Audrey Mosqueda DO at 4:18 EDT Tel , Service support ,
== END | disposition home or self-care (01) ==
LOC: US 15:49
PROVIDERS: Referring Provider Obstetrics & Gynecology; Visit Provider Obstetrics & Gynecology
DX: N93.9 Abnormal uterine and vaginal bleeding, unspecified (principal)
CPT/HCPCS: 76830; 76856

== ENCOUNTER → 2020-03-29 16:10 | Outpatient (CLI) | payer BC, SELFPAY ==
[2020-03-29 18:58] LABS: hCG Titer Quant., Serum 870 mIU/mL (1-3)
== END ==
PROVIDERS: Obstetrics & Gynecology; Referring Provider Obstetrics & Gynecology; Visit Provider Obstetrics & Gynecology
DX: O20.0 Threatened abortion (principal)
CPT/HCPCS: 36415; 84702

== ENCOUNTER → 2020-03-31 16:01 | Outpatient (CLI) | payer BC, SELFPAY ==
[2020-03-31 17:08] LABS: hCG Titer Quant., Serum 1802 mIU/mL (1-3)
== END ==
PROVIDERS: Obstetrics & Gynecology; Referring Provider Obstetrics & Gynecology; Visit Provider Obstetrics & Gynecology
DX: O20.0 Threatened abortion (principal)
CPT/HCPCS: 36415; 84702

== ENCOUNTER → 2020-04-13 16:14 | Outpatient (CLI) | payer BC, SELFPAY ==
[2020-04-13 17:56] LABS: hCG Titer Quant., Serum 20842 mIU/mL (1-3)
== END ==
PROVIDERS: Referring Provider Obstetrics & Gynecology; Visit Provider Obstetrics & Gynecology
DX: N93.9 Abnormal uterine and vaginal bleeding, unspecified (principal)
CPT/HCPCS: 36415; 84702

== ENCOUNTER → 2020-04-14 09:16 | Outpatient (CLI) | payer BC, SELFPAY ==
--- NOTE | 2020-04-14 09:16 | US_ITS ---
STUDY: FIRST TRIMESTER OBSTETRICAL ULTRASOUND REASON FOR EXAM: Female, 34 years old dating LMP: 02/13/2020. TECHNIQUE: Transvaginal TECHNICAL QUALITY: Adequate. PRIOR ULTRASOUND: None. FINDINGS: There is visualization of a single gestational sac in a normal intrauterine position. The mean sac diameter (MSD) measures 1.35 cm, indicating an estimated gestational age (EGA) of 6 weeks, 1 days. The gestational sac shape is within normal limits. There is a visualized yolk sac. The yolk sac measures 4.4 mm. The placenta is non-visualized. There is visualization of a live embryo. The crown-rump length (CRL) measures 5.7 mm, indicating an estimated gestational age (EGA) of 6 weeks, 2 days. There is demonstrated cardiac activity with a heart rate of 77 bpm. The estimated gestation age (EGA) by LMP is 8 weeks, 5 days. The estimated date of delivery (JOCELIN) by LMP is 11/19/2020. The estimated gestation age (EGA) by US is 6 weeks, 2 days. The estimated date of delivery (JOCELIN) by US is 12/06/2020. The uterus measures 9.1 cm x 5.7 cm x 4.7 cm. There is no demonstrated uterine fibroid. The cervix is closed. The right ovary measures 2.1 cm x 3.2 cm x 2.2 cm. There is no right ovarian cyst. There is no visualized right adnexal mass or complex lesion. The left ovary measures 3.2 cm x 1.6 cm x 1.8 cm. There is no left ovarian cyst. There is no visualized left adnexal mass or complex lesion. There is no fluid in the cul de sac. US/Transvaginal w/Preg US IMPRESSION: Single live intrauterine gestation with a mean gestational age of 6 weeks and 2 days. The embryonic heartbeat is 77 bpm. Electronically Signed: Jeevan Singh MD at 10:06 EST , Service support ,
== END ==
PROVIDERS: Referring Provider Obstetrics & Gynecology; Visit Provider Obstetrics & Gynecology
DX: N93.9 Abnormal uterine and vaginal bleeding, unspecified (principal)
CPT/HCPCS: 76817

== ENCOUNTER → 2020-04-21 07:27 | Outpatient (CLI) | payer BC, SELFPAY ==
--- NOTE | 2020-04-21 07:38 | US_ITS ---
STUDY: FIRST TRIMESTER OBSTETRICAL ULTRASOUND REASON FOR EXAM: Female, 34 years old viability LMP: 02/13/2020. TECHNIQUE: Transvaginal TECHNICAL QUALITY: Adequate. PRIOR ULTRASOUND: Comparison is made with prior examination dated 04/14/2020. FINDINGS: There is visualization of a single gestational sac in a normal intrauterine position. The mean sac diameter (MSD) measures 2.43 cm, indicating an estimated gestational age (EGA) of 7 weeks, 3 days. The gestational sac shape is within normal limits. There is a visualized yolk sac. The yolk sac measures 3.6 mm. The placenta is non-visualized. There is visualization of a live embryo. The crown-rump length (CRL) measures 7.46 cm, indicating an estimated gestational age (EGA) of 7 weeks, 5 days. There is no demonstrated cardiac activity . The estimated gestation age (EGA) by LMP is 9 weeks, 5 days. The estimated date of delivery (JOCELIN) by LMP is 11/19/2020. The estimated gestation age (EGA) by US is 7 weeks, 4 days. The estimated date of delivery (JOCELIN) by US is 12/04/2020. The uterus measures 9.6 cm x 6.9 cm x 4.4 cm. There is no demonstrated uterine fibroid. The cervix is closed. The right ovary measures 3.9 cm x 3.1 cm x 2.1 cm. There is a 2.2 cm x 1.9 cm x 1.9 cm corpus luteum cyst. There is no visualized right adnexal mass or complex lesion. The left ovary measures 3.5 cm x 2.3 cm x 1.8 cm. There is no left ovarian cyst. There is no visualized left adnexal mass or complex lesion. There is no fluid in the cul de sac. US/Transvaginal w/Preg US IMPRESSION: Intrauterine gestation with a mean gestational age of 7 weeks and 4 days. No embryonic cardiac activity is seen. Right corpus luteum cyst. Electronically Signed: Jeevan Singh MD at 11:44 EST , Service support ,
== END ==
PROVIDERS: Referring Provider Obstetrics & Gynecology; Visit Provider Obstetrics & Gynecology
DX: Z34.90 Encounter for supervision of normal pregnancy, unspecified, unspecified trimester (principal); Z20.822 Contact with and (suspected) exposure to COVID-19
CPT/HCPCS: 76817; 87426

== ENCOUNTER 2020-04-24 10:45 | Day surgery (SDC) | payer BC, SELFPAY ==
[2020-04-24] MEDS: Lidocaine 1% (20 ml mdv) 20 ML Vial (07:41)
--- NOTE | 2020-04-24 08:51 | PCM.HPOB.BLA ---
- Problem List (1) Missed Status: Acute Comment: 8 weeks plan D&C with jihan delgado, plan APL panel and HSG. 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 Is patient in pain?: No Allergies No Known Allergies Allergy (Verified 04/21/20 14:33) Medications multivitamin,[id number] 1 tab PO DAILY 09/13/19 [History Confirmed 04/21/20] Acetaminophen [Tylenol Extra Strength] 500 - 1,000 mg PO Q6H PRN PRN 04/21/20 [History Confirmed 04/21/20] Fluoxetine HCl [Prozac] 25 mg PO DAILY 04/21/20 [History Confirmed 04/21/20] Is last menstrual period known: No Post menopausal: No Patient : Yes : No [facility] Medical History Anemia affecting first (Acute) Gestational diabetes mellitus (GDM) affecting first (Acute) Mild pre-eclampsia affecting first (Acute) Surgical History delivery delivered (Acute) H/O splenectomy (Acute) ORIF left elbow (Acute) Family History Grandfather Heart disease Diabetes Father Hypertension Unknown Kidney disease Social History (Updated 04/24/20 @ 08:[address] 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 She denies any symptoms today and upon ultrasound examination crown-rump length is consistent with gestational age but no heart rate is seen. Subchorionic hemorrhage is seen. She denies any fevers or cramping Pregancy History 4 Elective abortions Hx Para 2 Spontaneous abortions 1 Hx # Term Pregnancies Ectopic pregnancies Hx # Pregnancies Multiple births # of living children 2 Past Pregnancies Del. Date Name GA/Weeks Outcome Route Bth Weight Gen Labor Lgth Anesthesia Del Locatn Provider FOB Unknown 2016 Itzel 39 live - full term 5lbs 13oz Female 10 hours spinal [place] Andrew 09/30/18 Desean 37 live - full term 5lbs 5oz Male spinal [facility] Delivery Date: antibody disease, NRFHTs Naz Mayfield Delivery Date: 09/30/18 maternal antibodies Anti- S and Anti- Y Farideh Collado Const Constitutional: Denies fatigue, fever(s), headache(s), increased appetite, poor appetite, weight gain or weight loss Cardio Card: Denies chest pain Resp Resp: Denies cough or dyspnea GI GI: Reports as per HPI; denies abdominal pain, constipation, nausea or vomiting : Reports as per HPI; denies difficulty urinating, painful urination, nipple discharge, urinary frequency, urinary incontinence, urinary hesitancy, urinary urgency, vaginal discharge, vaginal dryness, vaginal odor or vaginal itching Skin Skin/Breast: Denies change in hair, breast lump, breast pain, breast skin changes or nipple discharge Exam Const General: cooperative, healthy appearing, comfortable, no acute distress, well developed Nutritional Appearance: average body habitus Orientation: alert HENMS Head: normal to inspection, normocephalic Neck Neck: normal visual inspection, trachea midline Thyroid: thyroid normal Resp Effort & Inspection: normal respiratory effort GI Inspection: normal to inspection, non-distended Palpation: soft, no hepatosplenomegaly Skin General: no rashes or lesions noted Assessment & Plan Problems 1. History of recurrent miscarriages N96 2. Missed O02.1 8 weeks plan D&C with jihan delgado, plan APL panel and HSG. Andrew 3. Anti-Y antibody 4. Anti-S antibody present R79.9 Type and cross 2 units to be available at surgery Plan After discussing the patient's diagnosis and treatment plan options, patient wishes to proceed with surgical management. I have discussed with the patient the risks, benefits, and alternatives of the procedure which include but are not limited to risks of anesthesia, bleeding, infection, possible damage to bowel, bladder, or surrounding vasculature which could lead to additional surgery to evaluate any complications. Patient agrees to procedure and wishes to proceed. ACOG/uptodate references given for additional information regarding procedure. Orders Orders: Anticardiolipin IgA,G,M 04/21/20 N96 Anticardiolipin IgG, IgM 04/21/20 N96 Beta-2 Glycoprot IgG, A, M 04/21/20 N96 Lupus Anticoagulant Comp 04/21/20 N96 UPDATE- I have seen the patient and performed any clinically relevant updates to the history and physical exam. aNz Mayfield MD
[2020-04-24 11:24] LABS: Absolute Lymphocyte Count 2.09 X10^3/uL (0.83-4.51); Absolute Neutrophil Count 10.8 X10^3/uL (2.0-7.7); Basophil# 0.09 X10^3/uL; Basophil% 0.6 % (0-1); Eosinophil# 0.15 X10^3/uL; Eosinophils% 1.1 % (0-5); Hematocrit 36.5 % (37-47); Hemoglobin 11.8 g/dL (12.0-15.0); Lymphocyte # 2.09 X10^3/ul (4.0); Lymphocyte % 14.8 % (19-41); Mean Corp Hgb Conc 32.3 g/dL (32-36); Mean Corpuscular Hgb 32.8 pg (27.0-32.0); Mean Corpuscular Volume 101.4 fL (81-99); Mean Platelet Vol. 9.4 fl (6.2-12.0); Monocyte# 0.97 X10^3/uL; Monocyte% 6.9 % (0-10); NRBC Flagged by Analyzer 0 % (0-5); Neutrophil # 10.81 X10^3/uL (2.7-7.7); Neutrophil % 76.2 % (47-70); Platelet Count 469 K/mm3 (150-450); RBC Distribution Width SD 56.6 fl (35.1-43.9); White Blood Count 14.2 K/mm3 (4.4-11.0)
[2020-04-24 11:29] VITALS: BP 100/67; PULSE 89; RESP 12; TEMP 37.1; O2SAT 100; BMI 18.6
[2020-04-24] MEDS: Lactated Ringers 1,000 ML 100 ML IV (11:36)
[2020-04-24] MEDS: Doxycycline 100 MG CAPSULE PO (11:37)
--- NOTE | 2020-04-24 12:15 | POC_PTH ---
PATIENT: BULL RAJPUT [place] [facility] [id number] AGE/SX: 34/F ROOM: RE04/24/[address]: Dr. Naz Mayfield MD : 1985 BED: DIS: 04/24/2020 SPEC #: [id number] RECD: 04/24/20 13:18 STATUS: KRYSTA REMarjorie #: [id number] ISAAC: 04/24/20 12:[address]: Naz Mayfield DEPT: SURGICAL PATHOLOGY RECD BY: Jazmine Sanchez ENTERED: 04/24/20 13:52 SP TYPE: PROD CONC OTHR DR: No Primary Care Phys Tissues: Product of conception, NOS Procedures: Surgery Specimen Level IV HEADER OPERATION: Dilation and curettage, suction, Anora PRE-OP DIAGNOSIS: Missed TISSUE SUBMITTED: Products of conception - demise for Anora testing MICROSCOPIC DIAGNOSIS Products of conception: [place]idua, gestational endometrium and immature chorionic villi (products of conception). See comment. JENNIFER:justin 04/25/2020 COMMENT Results of Anora studies will be reported separately as an addendum. MICROSCOPIC DESCRIPTION Slides are reviewed. GROSS DESCRIPTION Received fresh labeled with the patient's name is a specimen designated products of conception. The specimen consists of multiple fragments of sherman-pink soft tissue that in aggregate measure 4 x 3 x 1 cm. No tissue is identified. A portion of tissue is submitted for Anora studies. The entire specimen is submitted in three cassettes. / JENNIFER:justin 04/24/20 TC:5 CPT: 10263 ADDENDUM ADDENDUM ADDENDUM ADDENDUM ADDENDUM ADDENDUM ADDENDUM ADDENDUM 05/03/2020 10:02 ADDENDUM 05/03/2020 10:02 ADDENDUM 05/03/2020 10:02 ADDENDUM 05/03/2020 10:02 ADDENDUM 05/03/2020 10:02 ANORA MICROARRAY CHROMOSOME ANALYSIS WITH PARENTAL SUPPORT RESULT: Normal male MICROARRAY RESULT: arr(1-22)x2,(XY)x1 CLINICAL INTERPRETATION: Normal male result. Please see complete report in e-chart or EMR
--- NOTE | 2020-04-24 12:47 | PCM.OPRPT ---
Problem List (1) Missed Status: Acute Comment: 8 weeks plan D&C with jihan anora, plan APL panel and HSG. Andrew (2) History of recurrent miscarriages Status: Acute (3) Anti-S antibody present Status: Chronic Comment: Type and cross 2 units to be available at surgery (4) Anti-Y antibody Status: Chronic Report of Operation Date of Procedure: 04/24/20 Pre-Operative Diagnosis: missed ab Post-Operative Diagnosis: same Surgery/Procedure Performed:: suction d and c Description of Surgical Findings:: 9 week uterus Type of Anesthesia:: Local MAC Special Medications: none Specimen's removed: poc Drains: none Estimated Blood Loss (mL): 50 Fluids Replaced: crystalloid Description of Procedure: Patient was taken to the operating room and placed under MAC local anesthesia. She was prepped and draped in the normal sterile fashion the dorsal lithotomy position. Bladder was drained of clear urine and anterior lip of the cervix was grasped and the uterus sounded to 10. Cervix was progressively dilated to allow passage of a 10 suction curette. Progressive passes were made removing the retained products of conception without complication. Sharp curettage confirmed complete removal of the retained products. All instruments were removed from the vagina and excellent hemostasis was noted and the patient was taken to recovery in stable condition. Grafts/Implants Used: none - Complications none - Admit VTE Documentation VTE Present on Admission: No VTE Mechan Device Prophylaxis: SCD's Multi Select Codes - Urinary/Genital Urinary/Genital CPT Codes: 15939 Surg Trtmt missed Ab 1TM
--- NOTE | 2020-04-24 12:58 | PCM.DC.D&C ---
Discharge Diet: No Restrictions Discharge Activity: Return to Normal Activity, May Shower, May Take a Tub Bath Allergies/Adverse Reactions: Allergies No Known Allergies Allergy (Verified 04/24/20 11:28) Medications to take at Discharge multivitamin,[id number]-[id number] 1 tab PO DAILY 09/13/19 Acetaminophen [Tylenol Extra Strength] 500 - 1,000 mg PO Q6H PRN PRN 04/21/20 Fluoxetine HCl [Prozac] 25 mg PO DAILY 04/21/20 Naproxen [Naprosyn] 250 - 500 mg PO Q8H PRN PRN #30 tab 04/24/20 The following prescriptions were given: Naproxen [Naprosyn] 250 - 500 mg PO Q8H PRN PRN #30 tab PRN Reason: MILD PAIN Transmission Status: Pending to [facility] Primary Care Physician: Care Physician,No Primary [Primary Care Provider] - Test Results: Test results from this visit will be discussed in further detail at your follow-up appointment, if applicable. Please Follow Up With: Naz Mayfield MD - [phone]
[2020-04-24 13:05] VITALS: BP 100/67; BP 80/64; PULSE 64; RESP 16; TEMP 36.8; O2SAT 97
[2020-04-24 13:15] VITALS: BP 100/67; BP 89/57; PULSE 78; RESP 16; O2SAT 100
[2020-04-24 13:30] VITALS: BP 100/67; BP 88/62; PULSE 67; RESP 16; O2SAT 99
[2020-04-24 13:31] VITALS: BP 100/67; BP 89/65; PULSE 65; RESP 16; TEMP 36.8; O2SAT 99
[2020-04-24 14:28] LABS: ANORA MAILED SPECIMEN
[2020-04-24 14:31] VITALS: BP 100/67; BP 84/54; PULSE 69; RESP 16; TEMP 37.2; O2SAT 98
[2020-04-25 16:09] LABS: Dilute Russell Viper Venom 31.1 sec (0.0-47.0); PTT-LA 32.4 sec (0.0-51.9); Thrombin Time 16.3 sec (0.0-23.0); dPT Confirm Ratio 0.93 Ratio (0.00-1.40)
[2020-04-25 16:16] LABS: Anti-Cardiolipin Ab, IgG, Qn < 9 GPL U/mL (0-14)
[2020-04-25 16:17] LABS: Anti-Cardiolipin Ab, IgA, Qn < 9 APL U/mL (0-11); Anti-Cardiolipin Ab, IgM, Qn 14 MPL U/mL (0-12); Beta-2-Glycoprotein I IgA <9 (0-25); Beta-2-Glycoprotein I IgG <9 (0-20); Beta-2-Glycoprotein I IgM <9 (0-32); Interpretation Comment: (.)
[2020-05-03 10:03] LABS: Pathology Specimen OB SEE PATHOLOGY REPORT
== END 2020-04-24 14:47 | disposition home or self-care (01) ==
LOC: SDC 10:46 → AC 10:51
PROVIDERS: Referring Provider Obstetrics & Gynecology; Visit Provider Obstetrics & Gynecology
PROC: (CPT 59820; principal; 2020-04-24 12:00)
DX: O02.1 Missed abortion (principal); Z87.59 Personal history of other complications of pregnancy, childbirth and the puerperium
CPT/HCPCS: 59820; 36415; 85025; 86146; 86147; 86850; 86870; 86900; 86901; 86920; 86922; 88305; C9803; J7120; J2405

== ENCOUNTER → 2020-11-21 10:19 | Outpatient (CLI) | payer BC, SELFPAY ==
[2020-11-21 11:41] LABS: hCG Titer Quant., Serum 109 mIU/mL (1-3)
[2020-11-23 06:08] LABS: Dilute Russell Viper Venom 30.4 sec (0.0-47.0); Thrombin Time 16.6 sec (0.0-23.0)
[2020-11-23 18:01] LABS: Anti-Cardiolipin Ab, IgA, Qn < 9 APL U/mL (0-11); Anti-Cardiolipin Ab, IgG, Qn < 9 GPL U/mL (0-14); Anti-Cardiolipin Ab, IgM, Qn 12 MPL U/mL (0-12)
[2020-11-23 18:02] LABS: Beta-2-Glycoprotein I IgA <9 (0-25); Beta-2-Glycoprotein I IgG <9 (0-20); Beta-2-Glycoprotein I IgM <9 (0-32); Dilute Prothrombin Time (dPT) 37.9 sec (0.0-55.0); Interpretation Comment: (.)
== END ==
PROVIDERS: Referring Provider Obstetrics & Gynecology; Visit Provider Obstetrics & Gynecology
DX: N91.2 Amenorrhea, unspecified (principal); N96 Recurrent pregnancy loss
CPT/HCPCS: 36415; 84702; 86146; 86147

== ENCOUNTER → 2020-11-23 06:49 | Outpatient (CLI) | payer BC, SELFPAY ==
[2020-11-23 08:01] LABS: hCG Titer Quant., Serum 294 mIU/mL (1-3)
== END ==
PROVIDERS: PCP Family Medicine; Referring Provider Obstetrics & Gynecology; Visit Provider Obstetrics & Gynecology
DX: N91.2 Amenorrhea, unspecified (principal)
CPT/HCPCS: 36415; 84702

== ENCOUNTER → 2020-11-30 06:33 | Outpatient (CLI) | payer BC, SELFPAY ==
[2020-11-30 07:48] LABS: hCG Titer Quant., Serum 4764 mIU/mL (1-3)
== END ==
PROVIDERS: PCP Family Medicine; Referring Provider Obstetrics & Gynecology; Visit Provider Obstetrics & Gynecology
DX: Z34.90 Encounter for supervision of normal pregnancy, unspecified, unspecified trimester (principal)
CPT/HCPCS: 36415; 84702

== ENCOUNTER → 2020-12-07 12:09 | Outpatient (CLI) | payer BC, SELFPAY ==
--- NOTE | 2020-12-07 12:09 | US_ITS ---
STUDY: FIRST TRIMESTER OBSTETRICAL ULTRASOUND REASON FOR EXAM: Female, 35 years old early LMP: 10/23/2020. TECHNIQUE: Transvaginal TECHNICAL QUALITY: Adequate. PRIOR ULTRASOUND: None. FINDINGS: There is visualization of a single gestational sac in a normal intrauterine position. The mean sac diameter (MSD) measures 1.3 cm, indicating an estimated gestational age (EGA) of 6 weeks, 0 days. The gestational sac shape is within normal limits. There is a visualized yolk sac. The yolk sac measures 4 mm. The placenta is non-visualized. There is visualization of a live embryo. The crown-rump length (CRL) measures 5 mm, indicating an estimated gestational age (EGA) of 6 weeks, 3 days. There is demonstrated cardiac activity with a heart rate of 160 bpm. The estimated gestation age (EGA) by LMP is 6 weeks, 3 days. The estimated date of delivery (JOCELIN) by LMP is 07/30/2020. The estimated gestation age (EGA) by US is 6 weeks, 1 days. The estimated date of delivery (JOCELIN) by US is 08/01/2020. The uterus measures 9.4 cm x 5.6 cm x 4.8 cm. There is no demonstrated uterine fibroid. The cervix is closed. Tiny subchorionic bleed. The right ovary measures 2.9 cm x 2 cm x 1.8 cm. There is no right ovarian cyst. There is no visualized right adnexal mass or complex lesion. The left ovary measures 2.3 cm x 1.5 cm x 1.4 cm. There is no left ovarian cyst. There is no visualized left adnexal mass or complex lesion. There is no fluid in the cul de sac. US/Transvaginal w/Preg US IMPRESSION: Single live uterine gestation with mean gestational age of 6 weeks and 1 day. Electronically Signed: Jeevan Singh MD at 12:47 EDT , Service support ,
== END ==
PROVIDERS: PCP Family Medicine; Referring Provider Obstetrics & Gynecology; Visit Provider Obstetrics & Gynecology
DX: Z34.90 Encounter for supervision of normal pregnancy, unspecified, unspecified trimester (principal)
CPT/HCPCS: 76817

== ENCOUNTER → 2020-12-13 14:51 | Outpatient (CLI) | payer BC, SELFPAY ==
--- NOTE | 2020-12-13 14:53 | US_ITS ---
STUDY: FIRST TRIMESTER OBSTETRICAL ULTRASOUND REASON FOR EXAM: Female, 35 years old . Bleeding. LMP: Unknown. TECHNIQUE: Transvaginal. TECHNICAL QUALITY: Adequate. PRIOR ULTRASOUND: December 07, 2020. FINDINGS: There is visualization of a single gestational sac in a normal intrauterine position. The mean sac diameter (MSD) measures 2.0 cm, indicating an estimated gestational age (EGA) of 7 weeks, 1 days. The gestational sac shape is within normal limits. There are 1.3 and 0.7 cm hypoechoic regions compatible with subchorionic hemorrhage. There is a visualized yolk sac. The yolk sac measures 0.4 cm. The placenta is non-visualized. There is visualization of a live embryo. The crown-rump length (CRL) measures 1.0 cm, indicating an estimated gestational age (EGA) of 7 weeks, 1 days. There is demonstrated cardiac activity with a heart rate of 141 bpm. The estimated gestation age (EGA) by US is 7 weeks, 1 days. The estimated date of delivery (JOCELIN) by US is August 01, 2019. The uterus measures 9.1 x 5.4 x 4.2 cm. There is no demonstrated uterine fibroid. The cervix is closed. The right ovary measures 3.5 x 2.3 x 2.1 cm. There is 2.5 cm cyst. There is no visualized right adnexal mass or complex lesion. The left ovary measures 2.4 x 1.8 x 1.7 cm. There is no left ovarian cyst. There is 0.7 cm echogenic region. There is no fluid in the cul de sac. US/Transvaginal w/Preg US IMPRESSION: Single intrauterine gestation 7 weeks 1 day with estimated due date July 31, 2021. There are small regions of subchorionic hemorrhage. Electronically Signed: Odell Olivia MD at 16:10 EDT , Service support ,
== END ==
PROVIDERS: PCP Family Medicine; Referring Provider Nurse Practitioner Women's Health; Visit Provider Nurse Practitioner Women's Health
DX: O20.0 Threatened abortion (principal)
CPT/HCPCS: 76817

== ENCOUNTER → 2020-12-25 | Outpatient (CLI) | payer BC, SELFPAY ==
[2020-12-28 22:07] LABS: Chlamydia By Nucleic Acid AMP Negative (Negative)
[2020-12-29 09:28] LABS: Gonococcus By Nucleic Acid AMP Negative (Negative)
== END | disposition home or self-care (01) ==
LOC: LABSPEC 16:34
PROVIDERS: PCP Family Medicine; Visit Provider Obstetrics & Gynecology
DX: Z34.90 Encounter for supervision of normal pregnancy, unspecified, unspecified trimester (principal)
CPT/HCPCS: 87491; 87591

== ENCOUNTER → 2021-01-01 12:17 | Outpatient (CLI) | payer BC, SELFPAY ==
[2021-01-01 13:04] LABS: Absolute Lymphocyte Count 2.25 X10^3/uL (0.83-4.51); Absolute Neutrophil Count 7.5 X10^3/uL (2.0-7.7); Basophil# 0.07 X10^3/uL; Basophil% 0.6 % (0-1); Eosinophil# 0.19 X10^3/uL; Eosinophils% 1.7 % (0-5); Hematocrit 34.2 % (37-47); Hemoglobin 11.1 g/dL (12.0-15.0); Lymphocyte # 2.25 X10^3/ul (0.83-4.51); Lymphocyte % 20.5 % (19-41); Mean Corp Hgb Conc 32.5 g/dL (32-36); Mean Corpuscular Hgb 32.6 pg (27.0-32.0); Mean Corpuscular Volume 100.3 fL (81-99); Mean Platelet Vol. 10.3 fl (6.2-12.0); Monocyte# 0.88 X10^3/uL; NRBC Flagged by Analyzer 0 % (0-5); Neutrophil # 7.51 X10^3/uL (2.7-7.7); Neutrophil % 68.7 % (47-70); Platelet Count 537 K/mm3 (150-450); RBC Distribution Width CV 14.2 % (11.6-14.6); RBC Distribution Width SD 51.9 fl (35.1-43.9); Red Blood Count 3.41 M/mm3 (4.2-5.4)
[2021-01-01 13:25] LABS: Protein:Creat Ratio 140 mg/g CRE (0-200)
[2021-01-01 13:27] LABS: Amphetamine Urine VISTA NEGATIVE (<1000 ng/mL); Barbiturate Urine VISTA NEGATIVE (< 200 ng/mL); Benzodiazepine Urine VISTA NEGATIVE (< 200 ng/mL); Cocaine Urine VISTA NEGATIVE (< 300 ng/mL); Ecstacy Urine VISTA NEGATIVE (< 500 ng/mL); Methadone Urine VISTA NEGATIVE (< 300 ng/mL); PCP Urine VISTA NEGATIVE (< 25 ng/mL); THC Urine VISTA NEGATIVE (< 50 ng/mL); Vista UDS pH Range 5
[2021-01-01 13:35] LABS: NATERA MAILED SPECIMEN
[2021-01-01 13:53] LABS: ALB/GLOB Ratio 0.8 RATIO (0.9-2.4); AST(SGOT) 12 U/L (15-37); Alanine Aminotransfer ALT/SGPT 13 U/L (13-56); Albumin, Serum 3.2 g/dL (3.2-5.0); Alkaline Phosphatase 65 U/L (45-117); Anion Gap 3 (5-15); BUN 13 mg/dL (7-18); BUN/Creat Ratio 24.1 RATIO (10-20); Calcium,Total 9.3 mg/dL (8.5-10.1); Chloride 107 mmol/L (98-107); Creatinine, Serum 0.54 mg/dL (0.55-1.02); EST Glomerular Filtration Rate 136 mL/min (>60); Est Glom Filt Rate - Afr Amer 165 mL/min (>60); Globulin 3.8 g/dL (2.2-4.2); Glucose 93 mg/dL (74-106); Potassium 3.7 mmol/L (3.5-5.1); Sodium Level 138 mmol/L (136-145)
[2021-01-01 14:27] LABS: HIV - WCH Non-Reactive (Nonreactive); Hepatitis B Surface Antigen Non-Reactive (Nonreactive); Hepatitis C Antibody Non-Reactive (Nonreactive); Rubella IgG Reactive (Nonreactive); Syphilis Antibodies Non-reactive
== END ==
PROVIDERS: PCP Family Medicine; Referring Provider Obstetrics & Gynecology; Visit Provider Obstetrics & Gynecology
DX: O14.00 Mild to moderate pre-eclampsia, unspecified trimester (principal); Z3A.00 Weeks of gestation of pregnancy not specified
CPT/HCPCS: 36415; 80053; 80307; 82570; 84156; 85025; 86703; 86762; 86780; 86803; 86850; 86870; 86900; 86901; 87086; 87088; 87340

== ENCOUNTER → 2021-02-03 08:10 | Outpatient (CLI) | payer BC, SELFPAY | PROVIDERS: PCP Family Medicine; Referring Provider Obstetrics & Gynecology; Visit Provider Obstetrics & Gynecology | DX: R79.9 Abnormal finding of blood chemistry, unspecified (principal) | CPT/HCPCS: 36415 ==

== ENCOUNTER 2021-03-03 09:02 | Outpatient (CLI) | payer BC, SELFPAY | END 2021-03-03 23:59 | disposition short-term general hospital (02) | LOC: LAB 09:03 | PROVIDERS: PCP Family Medicine; Referring Provider Obstetrics & Gynecology; Visit Provider Obstetrics & Gynecology | DX: R76.0 Raised antibody titer (principal) | CPT/HCPCS: 36415 ==

== ENCOUNTER 2021-03-30 16:13 | Outpatient (CLI) | payer BC, SELFPAY | END 2021-03-30 23:59 | disposition home or self-care (01) | PROVIDERS: PCP Family Medicine; Referring Provider Obstetrics & Gynecology; Visit Provider Obstetrics & Gynecology | DX: R76.0 Raised antibody titer (principal) | CPT/HCPCS: 36415 ==

== ENCOUNTER 2021-04-16 07:57 | Outpatient (CLI) | payer BC, SELFPAY ==
[2021-04-16 08:37] LABS: Absolute Lymphocyte Count 2.29 X10^3/uL (0.83-4.51); Absolute Neutrophil Count 9.6 X10^3/uL (2.0-7.7); Basophil# 0.13 X10^3/uL; Basophil% 0.9 % (0-1); Eosinophil# 0.22 X10^3/uL; Eosinophils% 1.6 % (0-5); Hematocrit 31.2 % (37-47); Hemoglobin 10.3 g/dL (12.0-15.0); Lymphocyte # 2.29 X10^3/ul (0.83-4.51); Lymphocyte % 16.3 % (19-41); Mean Corpuscular Hgb 33.6 pg (27.0-32.0); Mean Corpuscular Volume 101.6 fL (81-99); Mean Platelet Vol. 10.9 fl (6.2-12.0); Monocyte# 1.16 X10^3/uL; Monocyte% 8.3 % (0-10); NRBC Flagged by Analyzer 0 % (0-5); Neutrophil # 9.61 X10^3/uL (2.7-7.7); Neutrophil % 68.3 % (47-70); Platelet Count 448 K/mm3 (150-450); RBC Distribution Width CV 13.5 % (11.6-14.6); RBC Distribution Width SD 50.1 fl (35.1-43.9); Red Blood Count 3.07 M/mm3 (4.2-5.4); White Blood Count 14.1 K/mm3 (4.4-11.0)
[2021-04-16 09:04] LABS: Glucose Challenge Gest 1H 50g 117 mg/dL (70-140)
== END 2021-04-16 23:59 | disposition home or self-care (01) ==
LOC: LAB 07:59
PROVIDERS: PCP Family Medicine; Referring Provider Obstetrics & Gynecology; Visit Provider Obstetrics & Gynecology
DX: O09.90 Supervision of high risk pregnancy, unspecified, unspecified trimester (principal)
CPT/HCPCS: 36415; 82950; 85025

== ENCOUNTER 2021-05-01 11:19 | Outpatient (CLI) | payer BC, SELFPAY | END 2021-05-01 23:59 | disposition home or self-care (01) | PROVIDERS: Nurse Practitioner Women's Health; PCP Family Medicine; Referring Provider Obstetrics & Gynecology; Visit Provider Obstetrics & Gynecology | DX: R79.9 Abnormal finding of blood chemistry, unspecified (principal) ==

== ENCOUNTER 2021-05-28 12:45 | Outpatient (CLI) | payer BC, SELFPAY | END 2021-05-28 23:59 | disposition home or self-care (01) | LOC: LAB 12:46 | PROVIDERS: PCP Family Medicine; Referring Provider Obstetrics & Gynecology; Visit Provider Obstetrics & Gynecology | DX: R76.0 Raised antibody titer (principal) | CPT/HCPCS: 36415; 86850; 86870 ==

== ENCOUNTER 2021-05-30 16:36 | Outpatient (CLI) | payer BC, SELFPAY | END 2021-05-30 23:59 | disposition home or self-care (01) | PROVIDERS: PCP Family Medicine; Visit Provider Obstetrics & Gynecology | DX: R76.0 Raised antibody titer (principal) ==

== ENCOUNTER → 2021-06-28 | Outpatient (CLI) | payer BC, SELFPAY | END | disposition home or self-care (01) | PROVIDERS: PCP Family Medicine; Referring Provider Obstetrics & Gynecology; Visit Provider Obstetrics & Gynecology | DX: O99.891 Other specified diseases and conditions complicating pregnancy (principal); R76.0 Raised antibody titer; Z3A.31 31 weeks gestation of pregnancy | CPT/HCPCS: 36415 ==

== ENCOUNTER → 2021-07-04 | Outpatient (CLI) | payer BC, SELFPAY | END | disposition home or self-care (01) | LOC: LABSPEC 16:54 | PROVIDERS: PCP Family Medicine; Visit Provider Obstetrics & Gynecology | DX: O09.90 Supervision of high risk pregnancy, unspecified, unspecified trimester (principal) | CPT/HCPCS: 87081 ==

== ENCOUNTER → 2021-07-10 | Outpatient (CLI) | payer BC, SELFPAY ==
[2021-07-10 18:34] LABS: Ferritin 5 ng/mL (8-252); Iron 20 ug/dL (50-170); Iron Binding Capacity,Total 683 ug/dL (250-450); PERCENT IRON SATURATION 2.9 % (15.0-55.0)
== END | disposition home or self-care (01) ==
LOC: LAB 16:33
PROVIDERS: PCP Family Medicine; Visit Provider Obstetrics & Gynecology
DX: D64.9 Anemia, unspecified (principal); R76.0 Raised antibody titer
CPT/HCPCS: 36415; 82728; 83540; 83550

== ENCOUNTER → 2021-07-19 | Outpatient (CLI) | payer BC, SELFPAY | END | disposition home or self-care (01) | PROVIDERS: PCP Family Medicine; Referring Provider Obstetrics & Gynecology; Visit Provider Obstetrics & Gynecology | DX: D64.9 Anemia, unspecified (principal) | CPT/HCPCS: 36415 ==

== ENCOUNTER 2021-07-20 09:28 | Outpatient (CLI) | payer BC, SELFPAY ==
[2021-07-20 09:51] LABS: Hematocrit 28.8 % (37-47); Hemoglobin 8.9 g/dL (12.0-15.0); Mean Corp Hgb Conc 30.9 g/dL (32-36); Mean Corpuscular Volume 93.8 fL (81-99); POSITIVE COUNT YES; POSITIVE DIFFERENTIAL YES; POSITIVE MORPHOLOGY YES; Platelet Count 373 K/mm3 (150-450); RBC Distribution Width CV 17.4 % (11.6-14.6); Red Blood Count 3.07 M/mm3 (4.2-5.4)
[2021-07-20 10:01] LABS: Differential Indicated MANUAL DIFF
[2021-07-20 10:39] LABS: Corrected WBC 15.4 K/mm3 (4.4-11.0); Eosinophil 2 % (0-5); Lymphocyte 10 % (19-41); Metamyelocyte 2 % (0-1); Monocyte 7 % (0-10); Neutrophil-Band 1 % (0-5); Neutrophil-Segmented 78 % (47-70); Nucleated Red Bld Cells,Manual 7 % (0-5); Total Cells Counted 100 (MANUAL DIFF)
[2021-07-20 10:40] LABS: Anisocytosis 2+; Platelet Estimate ADEQUATE (ADEQ); Red Cell Morphology N CHROM NORMAL (NORM C&C)
[2021-07-20 14:08] LABS: Absolute Lymphocyte Count 1.54 X10^3/uL (0.83-4.51); Absolute Neutrophil Count 12.2 X10^3/uL (2.0-7.7)
[2021-07-24 11:44] LABS: Pathologist Review Reviewed
== END 2021-07-20 23:59 | disposition home or self-care (01) ==
LOC: LAB 09:28
PROVIDERS: PCP Family Medicine; Referring Provider Obstetrics & Gynecology; Visit Provider Obstetrics & Gynecology
DX: O99.019 Anemia complicating pregnancy, unspecified trimester (principal); Z3A.00 Weeks of gestation of pregnancy not specified
CPT/HCPCS: 36415; 85025; 86850; 86870; 86900; 86901

== ENCOUNTER → 2021-07-20 | Outpatient (CLI) | payer BC, SELFPAY ==
[2021-07-20 13:03] VITALS: BP 114/74; PULSE 89; RESP 16; TEMP 36.5; O2SAT 99
[2021-07-20] MEDS: 0.9% NaCl IVPB Med Flush (250 mL) 15 ML IV (13:36)
[2021-07-20 15:42] VITALS: BP 102/67; PULSE 81; O2SAT 97
== END | disposition home or self-care (01) ==
LOC: MEDOUTP 12:57
PROVIDERS: PCP Family Medicine; Referring Provider Obstetrics & Gynecology; Visit Provider Obstetrics & Gynecology
DX: D64.9 Anemia, unspecified (principal)
CPT/HCPCS: 96365; 96366; J1756; J7050

== ENCOUNTER 2021-07-24 10:00 | Inpatient (IN) | payer BC, SELFPAY ==
[2021-07-24] VITALS (15 sets, daily range): BP systolic 84–128; BP diastolic 30–75; PULSE 55–90; RESP 14–16; TEMP 36.1–36.9; O2SAT 95–100; BMI 26.4
--- NOTE | 2021-07-24 09:38 | HP.PCM_ITS ---
History and Physical Date of Admission: 07/24/21 Intake Vital Signs 07/20/21 16:19 Height 5 ft 5 in Weight: 160 lb BMI 26.6 Intake Visit Reasons: 38 WK OB Chief Complaint: est ob Floorworker Required: No Is patient in pain?: No Allergies No Known Allergies Allergy (Verified 07/04/21 15:59) Medications multivitamin,uw-ygoe-stvvnpyh 1 tab PO DAILY 09/13/19 [History Confirmed 07/20/21] fluoxetine 25 mg PO DAILY 04/21/20 [History Confirmed 07/20/21] Last Menstral Period: 02/13/20 Zika: Zika virus screening: Negative : No PFSH PFSH Medical History Anemia Anemia affecting first Mild pre-eclampsia affecting first Missed Surgical History delivery delivered H/O dilation and curettage (~04/24/20) H/O splenectomy ORIF left elbow Family History Grandfather Heart disease Diabetes Father Hypertension Unknown Kidney disease Social History Smoking Status: Never smoker alcohol intake: never substance use type: does not use caffeine: Yes frequency: 3-4 times per week seatbelt use: always do you feel safe at home: Yes 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 Date Name GA/Weeks Outcome Route Bth Weight Gen Labor Lgth Anesthesia Del Locatn Provider FOB Unknown 2016 Itzel 39 live - full term 5lbs 13oz Female 10 hours spinal Felipe Morales 09/30/18 Desean 37 live - full term 5lbs 5oz Male spinal [facility] Delivery Date: antibody disease, NRFHTs Naz Mayfield Delivery Date: 09/30/18 maternal antibodies Anti- S and Anti- Y Heaven,Farideh HPI 38 WK OB Details: BULL RAJPUT is a 35 year old who presents for routine OB visit. OB Visit JOCELIN Calculator Estimated Delivery Date Method Current WG Current Estimate 07/30/21 LMP (Certain) 38w 4d Expected Delivery Route/Plan RLTCS with SM Specific Issue/Plans Covid status: vaccinated, booster pfizer Flu vaccine: given Tdap vaccine: [] Rhogam:na LARC form signed: yes Problem list reviewed and updated with the most current plan of care details and appropriate orders placed. Relevant counseling for the gestational age provided. Continue routine care and follow up unless otherwise noted in visit notes/problem list details Initial Weight: 117 lb Date EGA Weight BP Urine Prot Glucose FHR FuHt Pres Dilation Effaced St Visit Note 12/25/20 9w 0d 117 lb (+0 oz) 120/62 150 SM_ CRL cons with LMP 01/02/21 10w 1d 120 lb (+3 lb) 116/72 Negative Negative 160 SM- co small bleeding 01/31/21 14w 2d 125 lb 2 oz (+8 lb 2 oz) 110/78 Negative Negative 163 JV- no further bleeding. monthly titers for anti s and anti y. saw mfm. start baby asa 20 weeks 02/22/21 17w 3d 129 lb 6 oz (+12 lb 6 oz) 100/58 Negative Negative 158 MH-No VB, LOF. Following anti S titers monthly and with MFM. 03/0503/23/21 21w 4d 132 lb (+15 lb) 100/64 Negative Negative 153 JV- pt has an ongoing cold and cough. her pcp wants to try doxy. if this does not help I recommend medrol. rpt antibody test ordered. gct order is in. 04/16/21 25w 0d 140 lb 6 oz (+23 lb 6 oz) 98/60 Negative Negative 161 25 MH-No Vb, LOF. Good FM. anti S titer stable. 28 wk labs pending. Larc done 05/14/21 29w 0d 146 lb (+29 lb) 112/60 140 29 SM- no vb lof good fm no regular ctx schedule cs at 39 05/30/21 31w 2d 151 lb 6 oz (+34 lb 6 oz) 110/72 Negative Negative 145 31 MH-No VB, LOF. Good FM. Having titer drawn today. 06/11/21 33w 0d 153 lb (+36 lb) 92/62 Negative Negative 145 33 SM- no vb lof good fm no regular ctx 06/27/21 35w 2d 154 lb 2 oz (+37 lb 2 oz) 110/72 Negative Negative 145 35 JV- no lof, vaginal bleeding, or dec fm. hg 8.7m sending for iron infusion , continue monthly antibody titers. 07/04/21 36w 2d 156 lb 8 oz (+39 lb 8 oz) 110/72 Negative Negative 135 36 Cephalic JV- anti cw anatibodies decreased down from 125 to 25 and anti - s is no longer detected. insurance is denying venofer. will do a peer to peer. JV- anti cw anatibodies decreased down from 125 to 25 and anti - s is no longer detected. insurance is denying venofer. will do a peer to peer. gbs collected.. growth scan today is 66th% 07/13/21 37w 4d 156 lb (+39 lb) 130/82 Negative Negative 07/20/21 38w 4d 160 lb (+43 lb) ACOG First Trimester First Trimester: Desire for , Alcohol, Tobacco Cessation, Illicit/Recreational Drug/Substance Use, Intimate Partner Violence, Barriers to care, Unstable Housing, Communication Barriers, Environmental/Work Hazards, Anticipated Course of Care, Toxoplasmosis Precations, Use of Any medications, Sexual activity, Exercise, Dental Care, Sauna/Hot tub use, Seat Belt use, Childbirth classes/Hospital facilities, Travel, Indications for Ultrasound and Screening for Aneuploidy; Discussed Second Trimester Second Trimester: Signs and Symptoms of Labor, Selecting a care provider, Reproductive Life Planning & Contreception, Care Planning, Tobacco Cessation, Depression/Anxiety and Intimate Partner Violence Third Trimester Third Trimester: Pain Management Plans, Labor support person(s), Immediate Larc, Movement Monitoring and Infant Feeding No ; Discussed Trial of Labor after Counseling and Discussed Circumcision preference Diagnostics Diagnostics Diagnostics: Blood Type A POSITIVE Antibody Screen POSITIVE H Hgb 8.9 g/dL (12.0-15.0) L Hct 28.8 % (37-47) L Details: HIV: Urine Culture: Sequential Screen: NIPT Screen: ROS Const Reports system reviewed and no additional complaints, except as documented Card Reports system reviewed and no additional complaints, except as documented Resp Reports system reviewed and no additional complaints, except as documented GI Reports system reviewed and no additional complaints, except as documented, Reports nausea Reports system reviewed and no additional complaints, except as documented Musc Reports system reviewed and no additional complaints, except as documented all other systems reviewed and negative Exam Const General: cooperative, healthy appearing, comfortable HENMT Head: normal to inspection Nose: external nose normal Face and sinus: normal facial exam Neck Neck: normal visual inspection, full ROM, no lymphadenopathy Thyroid: thyroid normal Chest Chest palpation & inspection: normal inspection of the chest Resp Effort & Inspection: normal respiratory effort GI Inspection: normal to inspection Palpation: soft, other (gravid uterus) Other: vertex and appropriate size for gestational age Other: Cervical Exam: Extrem General: pedal edema Coding Diagnoses Anemia D64.9 Abnormal antibody titer R76.0 Subchorionic hematoma in first trimester O41.8X10; O46.8X1 H/O section Z98.891 AMA (advanced maternal age) multigravida 35+ O09.522 Trimester: second trimester Mild pre-eclampsia affecting first O14.00 Supervision of high risk , antepartum O09.90 Z3A.38 Weeks of gestation: 38 weeks History of recurrent miscarriages N96 Anti-S antibody present R79.9 Anti-Y antibody Assessment and Plan Assessment and Plan (1) Anemia: Status: Acute Comment: iron infusion ordered (2) Abnormal antibody titer: Status: Acute Comment: anti CW pos patient 1:128, tested cw neg. only pos for anti s. per mfm, recheck q 4 wks unless rises above 16 stil 1:4 (3) Subchorionic hematoma in first trimester: Status: Acute (4) H/O section: Status: Acute Comment: x2 repeat C/S- planning for rpt, RLTCS scheduled for 07/24 @ 12 with SM (5) AMA (advanced maternal age) multigravida 35+: Status: Acute Qualifiers: Trimester: second trimester Qualified Code(s): O09.522 - Supervision of elderly multigravida, second trimester Comment: growth scan at 36 weeks (6) Mild pre-eclampsia affecting first : Status: Acute Comment: baseline CMP PC/R at NOB start baby asa 20 weeks (late due to subchorionic hem) 04/16/21:taking ASA. She questions dx as she was unaware of any hx of HTN. (7) Supervision of high risk , antepartum: Status: Acute Comment: PRR JOCELIN: 07/30/21, girl, PC: Desean Robbins Spouse: Andrew (8) : Status: Acute Qualifiers: Weeks of gestation: 38 weeks Qualified Code(s): Z3A.38 - 38 weeks gestation of Comment: anatomy nl, NIPT low risk, history of maternal transfusion. GBS neg (9) History of recurrent miscarriages: Status: Acute (10) Anti-S antibody present: Status: Chronic Comment: Type and cross 2 units to be available at surgery; titers monthly and if 1:16 or higher needs weekly dopplers. 2/4 titer stable, MFM following. In order to get titer antibody [place] [facility] [place] LabCore Antibody ID#[id number]. (11) Anti-Y antibody: Status: Chronic UPDATE- I have seen the patient and performed any clinically relevant updates to the history and physical exam. Naz Mayfield MD
[2021-07-24] MEDS: Lactated Ringers 1,000 ML 999 ML IV (10:20)
[2021-07-24 10:48] LABS: Hematocrit 31.5 % (37-47); Mean Corp Hgb Conc 31.7 g/dL (32-36); Mean Corpuscular Hgb 29.9 pg (27.0-32.0); Mean Corpuscular Volume 94.3 fL (81-99); Mean Platelet Vol. 12.6 fl (6.2-12.0); POSITIVE COUNT YES; POSITIVE DIFFERENTIAL YES; POSITIVE MORPHOLOGY YES; Platelet Count 339 K/mm3 (150-450); RBC Distribution Width CV 20.4 % (11.6-14.6); RBC Distribution Width SD 53.4 fl (35.1-43.9); Red Blood Count 3.34 M/mm3 (4.2-5.4)
[2021-07-24] MEDS: Acetaminophen 500 MG Tablet 1000 MG PO ×3 (11:24→23:30)
[2021-07-24] MEDS: Sodium Citrate/Citric Acid 30 ML UDC PO (11:25)
[2021-07-24] MEDS: Lactated Ringers 1,000 ML 150 ML IV (11:26)
[2021-07-24 11:43] LABS: Macrocytosis 1+; Platelet Estimate ADEQUATE (ADEQ); Polychromasia 2+
[2021-07-24] MEDS: Cefazolin 2 GM in 0.9% Normal Saline 100 ML IV (11:50)
--- NOTE | 2021-07-24 12:01 | OP.PCM_ITS ---
Assessment & Plan (1) H/O section: COMMENT: SM RLTCS girl 39 (2) Anti-S antibody present: COMMENT: Type and cross 2 units to be available at surgery; titers monthly and if 1:16 or higher needs weekly dopplers. 2/4 titer stable, MFM following. [place] to get titer [place] [facility] [place] LabCore Antibody ID#[id number]. (3) Anti-Y antibody: (4) H/O section: COMMENT: x2 repeat C/S- planning for rpt, RLTCS scheduled for 07/24 @ 12 with JV (5) Abnormal antibody titer: COMMENT: anti CW pos patient 1:128, tested cw neg. only pos for anti s. per mfm, recheck q 4 wks unless rises above 16 stil 1:4 (6) AMA (advanced maternal age) multigravida 35+: QUALIFIERS: Trimester: second trimester Qualified Code(s): O 09.522 - Supervision of elderly multigravida, second trimester COMMENT: growth scan at 36 weeks Maternal Data Information JOCELIN Calculator Estimated Delivery Date Method Current WG Current Estimate 07/30/21 LMP (Certain) 39w 1d Final JOCELIN Source: LMP Details Operative Information Date of Procedure: 07/24/21 Pre-Operative Diagnosis: Previous Post-Operative Diagnosis: same Indications for : Repeat Elective Classification: Scheduled polysomnograph tech #1: Maribel Burden Type of Anesthesia: Spinal Special Medications: txa, methergine hemabate fro uterine atony Antibiotic Given: Ancef 2 grams IV x1 Drain: Bryant to straight drain Estimated Blood Loss: 800 Fluids Replaced: crystalloid Findings Description of Procedure: Spinal anesthesia was placed without difficulty. Bryant catheter was placed. The patient was placed in the dorsal supine position with leftward tilt. Patient was prepped and draped in the normal sterile fashion. Pfannenstiel skin incision was made with the scalpel and carried through to the underlying layer of fascia with the scalpel. Fascia was nicked in the midline and the incision extended laterally. The rectus bellies were dissected off superiorly and inferiorly with out complication both sharply and bluntly. The peritoneum was entered digitally. The incision was stretched and a low transverse uterine incision was made with the scalpel. The 's head was delivered atraumatically followed by the anterior and posterior shoulders without complication the rest of the delivered. The cord was clamped and cut and the was handed off to awaiting nurse. The placenta was delivered spontaneously immediately following and was noted to be intact and have a three- vessel cord. The uterus was exteriorized cleared of all clots and debris, and the incision was closed in a double layer closure using #1 Monocryl. The ovaries and fallopian tubes were noted to be within normal limits. The uterus was returned to the maternal abdomen and gutters were cleared of all clots and debris. The peritoneum was closed with 3-0 Monocryl in a running fashion. Gloves were changed prior to fascial closure. Fascia was closed with 0 PDS in a running fashion. Subcutaneous tissue was copiously irrigated and the skin was closed with 3-0 Monocryl in a subcuticular fashion. Mepilex dressing was applied without complication. Patient was taken to recovery in stable condition. It was discussed with the patient that based on the clinical information obtained during this encounter, combined with her history, at this time I would recommend cesareans for future deliveries if further pregnancies are desired. Amniotic Membrane Rupture Type: Artificial Amniotic Fluid Description: Clear Placenta Disposition: [facility] Cord Vessel Description: 3 Vessels Cord Entanglement: None Delayed Cord Clamping: Yes Complications Risks of Surgery Discussed w/Patient: Bleeding, Infection, Need for Future C- Sections and Injury to surrounding structure(s) including bowel and bladder Vaginal Delivery Complication Complications: None Admit VTE Documentation VTE Present on Admission: No VTE Mechan Device Prophylaxis: SCD's Procedures Urinary/Genital [id number]: [id number] Delivery [facility]
--- NOTE | 2021-07-24 12:02 | PCM.DC ---
Discharge Instructions Diet Discharge Diet: No restrictions Activity Discharge Activity: May Not Drive (for 2 weeks or while taking narcotic pain medications.), May Shower and May Take a Tub Bath (in 7 days) May shower in (days): 0 May resume sexual activity in: 4-6 weeks Weight Bearing Status: Full weight bearing Lifting Restrictions: 20 pounds Dressing / Incision Call your doctor if your incision/area has: Continuous Slow Oozing, Sudden Increased Bleeding, Increased Pain/ Swelling, Increased Redness and Foul Smelling Discharge Call your doctor if you observe: Fever of 101 or Higher and Using more than 1 pad per hour (for 2 hours) Suture Line Care: Avoid Pulling/Pushing and Avoid Pinching/Bending Cleanse incision/area with: Soap & Water and Keep Dressing Clean & Dry Follow Up Care Please Follow Up With: Naz Mayfield MD When: Call [phone] to make an appointment for an incision check in 1-2 weeks. Test Results: Test results from this visit will be discussed in further detail at your follow-up appointment, if applicable. Discharge Plan Admission Admit Date/Time: 07/24/21 10:00 Attending Provider: Naz Mayfield Primary Care Provider: Celestina Aquino Discharge Orders/Prescriptions Prescriptions: New oxycodone-acetaminophen [Percocet] 5-325 mg tablet 1 tab PO Q6H PRN (Reason: pain) 7 Days Qty: 20 RF: 0 naproxen [naproxen] 500 MG tablet 500 mg PO BID PRN PRN (Reason: Pain) Qty: 30 RF: 1 No Action multivitamin,tj-uued-silamnhp 1 tab PO DAILY RF: 0 Referrals / Follow Up: Celestina Aquino MD [Primary Care Provider] - Disposition Disposition (needs filled in before D/C Order can be placed): Home, Self Care
[2021-07-24] MEDS: Methylergonovine 0.2 MG/ML Ampul IM (12:29)
[2021-07-24] MEDS: Carboprost Tromethamine 250 MCG/ML Ampul IM (12:33)
[2021-07-24] MEDS: Oxytocin 30 units/NS 500 ml 30 UNITS/500 ML IV.SOLN 167 UNITS IV (13:05)
[2021-07-24] MEDS: Ketorolac 30 MG/ML Syringe IV ×2 (13:52→20:04)
[2021-07-24] MEDS: Ondansetron 4 MG/2 ML Vial IV (15:09)
[2021-07-24] MEDS: Lactated Ringers 1,000 ML 100 ML IV (16:22)
[2021-07-24] MEDS: proCHLORPERazine 10 MG/2 ML Vial IV (18:20)
[2021-07-25] VITALS (12 sets, daily range): BP systolic 84–104; BP diastolic 46–64; PULSE 48–80; RESP 16–18; TEMP 36.3–37; O2SAT 96–100
[2021-07-25] MEDS: Lactated Ringers 1,000 ML 999 ML IV ×2 (00:17→01:58)
[2021-07-25 00:24] LABS: Absolute Lymphocyte Count 1.83 X10^3/uL (0.83-4.51); Absolute Neutrophil Count 18.7 X10^3/uL (2.0-7.7); Basophil# 0.06 X10^3/uL; Basophil% 0.3 % (0-1); Hematocrit 26.9 % (37-47); Hemoglobin 8.3 g/dL (12.0-15.0); Lymphocyte # 1.83 X10^3/ul (0.83-4.51); Mean Corp Hgb Conc 30.9 g/dL (32-36); Mean Corpuscular Hgb 29.1 pg (27.0-32.0); Mean Corpuscular Volume 94.4 fL (81-99); Mean Platelet Vol. 12.1 fl (6.2-12.0); Monocyte# 1.73 X10^3/uL; Monocyte% 7.6 % (0-10); NRBC Flagged by Analyzer 0.3 % (0-5); Neutrophil # 18.67 X10^3/uL (2.7-7.7); Neutrophil % 81.5 % (47-70); POSITIVE DIFFERENTIAL YES; POSITIVE MORPHOLOGY YES; Platelet Count 297 K/mm3 (150-450); RBC Distribution Width CV 20.3 % (11.6-14.6); RBC Distribution Width SD 53.7 fl (35.1-43.9); Red Blood Count 2.85 M/mm3 (4.2-5.4); White Blood Count 22.9 K/mm3 (4.4-11.0)
[2021-07-25 00:24] LABS: Differential Indicated MANUAL DIFF
[2021-07-25 00:26] LABS: Scan Smear per Review Criteria MANUAL DIFF
[2021-07-25 00:32] LABS: Differential Indicated SCAN CRITERIA MET
[2021-07-25 01:10] LABS: Anisocytosis 2+; Polychromasia 1+
[2021-07-25 01:16] LABS: Absolute Lymphocyte Count 3.76 X10^3/uL (0.83-4.51); Absolute Neutrophil Count 9.6 X10^3/uL (2.0-7.7); Eosinophil 1 % (0-5); Lymphocyte 25 % (19-41); Monocyte 3 % (0-10); Myelocyte 7 % (0-0); Neutrophil-Segmented 64 % (47-70); Nucleated Red Bld Cells,Manual 1 % (0-5); Total Cells Counted 100 (MANUAL DIFF)
[2021-07-25 01:17] LABS: Anisocytosis 2+
[2021-07-25] MEDS: Ketorolac 30 MG/ML Syringe IV ×2 (02:13→08:29)
--- NOTE | 2021-07-25 03:52 | NURSING ---
Bolus complete @ 0320. Bleeding scant, fundus firm, patient denies feeling dizzy or lightheaded at this time BP cuff changed out to small adult. Plan to follow up with CBC at 0600AM today.
[2021-07-25 04:48] LABS: Hematocrit 23.9 % (37-47); Hemoglobin 7.4 g/dL (12.0-15.0); Mean Corpuscular Hgb 29.2 pg (27.0-32.0); Mean Corpuscular Volume 94.5 fL (81-99); Mean Platelet Vol. 12.1 fl (6.2-12.0); POSITIVE MORPHOLOGY YES; Platelet Count 261 K/mm3 (150-450); RBC Distribution Width SD 53.4 fl (35.1-43.9); Red Blood Count 2.53 M/mm3 (4.2-5.4)
[2021-07-25 04:51] LABS: Scan Indicated on CBC? Y/N YES- FLAGS NOTED
[2021-07-25 05:01] LABS: RBC Distribution Width CV 20.1 % (11.6-14.6)
--- NOTE | 2021-07-25 05:07 | EKG12_ITS ---
Test Reason : BRADYCARDIA Blood Pressure : / mmHG Vent. Rate : 053 BPM Atrial Rate : 053 BPM P-R Int : 138 ms QRS Dur : 090 ms QT Int : 432 ms P-R-T Axes : 048 015 020 degrees QTc Int : 405 ms Sinus bradycardia Otherwise normal ECG No previous ECGs available Confirmed by ROBERT MALDONADO, ROBERTO ([id number]), editor dictionary FRANK NELSON ([id number]) on 07/25/2021 12:21:25 PM Referred By: Naz Mayfield Confirmed By:ROBERTO JONES MD
[2021-07-25] MEDS: Acetaminophen 500 MG Tablet 1000 MG PO ×4 (06:19→23:29)
--- NOTE | 2021-07-25 08:03 | PN.OBGYN_ITS ---
Subjective Subjective Patient is laying in bed comfortably without complaints. She states that she slept on an off during the night. Lochia is mild and pain is minimal. Her biggest complaint is feeling very sleepy. Objective Data Objective Data Vital Signs: Vital Signs Temp Pulse Resp BP Pulse Ox 97.7 F L 59 L 16 96/53 L 96 07/25/21 07:10 07/25/21 07:10 07/25/21 07:10 07/25/21 07:10 07/25/21 07:10 Oxygen Delivery Method Room Air Weight: 158 lb 15.253 oz Body Mass Index (BMI) 26.4 Intake & Output: Intake and Output for Last 24 Hours 07/23/21 07/24/21 07/25/21 23:59 23:59 23:59 Intake Total 2805 / 2805 2813.33 / 2813.33 Output Total 1100 / 1100 1200 / 1200 Balance 1705 / 1705 1613.33 / 1613.33 Lab / Micro Data Result Diagrams: 07/25/21 04:40 Labs: Laboratory Results - last 24 hr 07/24/21 10:15: WBC 15.0 H, RBC 3.34 L, Hgb 10.0 L, Hct 31.5 L, MCV 94.3, MCH 29.9, MCHC 31.7 L, RDW Std Deviation 53.4 H, RDW Coeff of Zeke 20.4 H, Plt Count 339, MPV 12.6 H, Immature Gran % (Auto) IGNITION SPECIALIST, Neut % (Auto) IGNITION SPECIALIST, Lymph % (Auto) IGNITION SPECIALIST, [place] % (Auto) IGNITION SPECIALIST, Eos % (Auto) IGNITION SPECIALIST, Baso % (Auto) IGNITION SPECIALIST, Absolute Neuts (auto) 9.6 H , Absolute Lymphs (auto) 3.76, Total Counted 100, Neutrophils % (Manual) 64, Lymphocytes % (Manual) 25, Monocytes % (Manual) 3, Eosinophils % (Manual) 1, Myelocytes % 7 H, Nucleated RBC % IGNITION SPECIALIST, Nucleated RBCs/100 WBC 1, Diff Path Review June, Platelet Estimate ADEQUATE, Polychromasia 2+, Anisocytosis 2+, Macrocytosis 1+ 07/24/21 10:20: Blood Type Cancelled, Antibody Screen Cancelled 07/24/21 10:20: Blood Type A POSITIVE, Antibody Screen POSITIVE H, Antibody Identification ANTI-S, Crossmatch See Detail 07/24/21 10:20: Crossmatch See Detail 07/25/21 00:12: WBC 22.9 H, RBC 2.85 L, Hgb 8.3 L, Hct 26.9 L, MCV 94.4, MCH 2 9.1, MCHC 30.9 L, RDW Std Deviation 53.7 H, RDW Coeff of Zeke 20.3 H, Plt Count 297, MPV 12.1 H, Immature Gran % (Auto) 2.600 H, Neut % (Auto) 81.5 H, Lymph % (Auto) 8.0 L, [place] % (Auto) 7.6, Eos % (Auto) 0.0, Baso % (Auto) 0.3, Absolute Neuts (auto) 18.7 H, Absolute Lymphs (auto) 1.83, Nucleated RBC % 0.3, Diff Path Review May , Polychromasia 1+, Anisocytosis 2+ 07/25/21 04:40: WBC 19.0 H, RBC 2.53 L, Hgb 7.4 L, Hct 23.9 L, MCV 94.5, MCH 29.2, MCHC 31.0 L, RDW Std Deviation 53.4 H, RDW Coeff of Zeke 20.1 H, Plt Count 261, MPV 12.1 H Micro: Microbiology 07/24/21 10:32 Nasal Secretion SARS-CoV-2 Antigen (Rapid) - Final ROS Constitutional Constitutional: Reports systems reviewed and no addt'l complaints, except as doc umented Cardiovascular Cardiovascular: Denies chest pain, dizziness, dyspnea or irregular heart rhythm Respiratory/Chest Respiratory/Chest: Denies cough, pain on inspiration or shortness of breath at rest Gastrointestinal Gastrointestinal: Denies abdominal pain, nausea or vomiting Genitourinary Genitourinary: Denies burning urination Musculoskeletal Musculoskeletal: Denies muscle cramps, muscle spasms or muscle weakness Neurologic Neurologic: Denies confusion, dizziness, headache(s) or lack of coordination Psychiatric Psychiatric: Denies anxiety, behavioral changes or depression Physical Exam HEENT normocephalic Resp normal respiratory effort and normal air movement GI soft to palpation, non-tender and non-distended Rectal Exam: other Other Details: Incision is clean, dry, and intact no CVA tenderness Extremity normal to inspection General Extremity: edema bilateral (trace ) Assessment & Plan (1) H/O section: COMMENT: DONTA RLTCS girl 39 (2) Anti-S antibody present: COMMENT: Type and cross 2 units to be available at surgery; titers monthly and if 1:16 or higher needs weekly dopplers. 2/4 titer stable, MFM following. In order to get titer [place] [facility] [place] LabCore Antibody ID#[id number]. (3) Anti-Y antibody: PLAN: s/p LTCS PPD # 1 1. receiving blood transfusion currently. Pt is ahead 3 + liters - giving IV lasix now. will need to start a second IV. consider iron infusion before dc. rpt cbc in 4 hrs from infusion. 2. breast feeding- support given 3. rubella immune
[2021-07-25] MEDS: Multivitamins,Ther W-Minerals Tablet 1 TABLET PO (08:14)
[2021-07-25] MEDS: 0.9% Saline Lock 10 ML Syringe IV ×3 (08:20→21:51)
[2021-07-25] MEDS: Furosemide 40 MG/4 ML Vial IV (09:26)
[2021-07-25] MEDS: Senna/Docusate Sodium 1 Tablet PO (10:19)
--- NOTE | 2021-07-25 10:20 | NURSING ---
1020- Pt. reports voiding again but missed that hat. States it felt like the same amount as last void. Hat repositioned in toilet to catch next void.
--- NOTE | 2021-07-25 10:46 | NURSING ---
1030- Pt up ambulating in room. Pt. reports feeling much better. Radial pulse while pt. is standing was 72bpm. SpO2 monitor showed 99% SpO2 and HR ranging from 76-84. Will continue to monitor.
[2021-07-25 13:09] LABS: Absolute Lymphocyte Count 2.93 X10^3/uL (0.83-4.51); Absolute Neutrophil Count 11.8 X10^3/uL (2.0-7.7); Basophil# 0.07 X10^3/uL; Basophil% 0.4 % (0-1); Eosinophil# 0.04 X10^3/uL; Eosinophils% 0.2 % (0-5); Hematocrit 29.2 % (37-47); Hemoglobin 9.3 g/dL (12.0-15.0); Lymphocyte # 2.93 X10^3/ul (0.83-4.51); Mean Corp Hgb Conc 31.8 g/dL (32-36); Mean Corpuscular Hgb 28.5 pg (27.0-32.0); Mean Corpuscular Volume 89.6 fL (81-99); Mean Platelet Vol. 12.1 fl (6.2-12.0); Monocyte# 1.96 X10^3/uL; Monocyte% 11.4 % (0-10); NRBC Flagged by Analyzer 0.3 % (0-5); Neutrophil # 11.82 X10^3/uL (2.7-7.7); Neutrophil % 68.6 % (47-70); POSITIVE DIFFERENTIAL YES; POSITIVE MORPHOLOGY YES; Platelet Count 285 K/mm3 (150-450); RBC Distribution Width CV 22.8 % (11.6-14.6); RBC Distribution Width SD 58.1 fl (35.1-43.9); Red Blood Count 3.26 M/mm3 (4.2-5.4); White Blood Count 17.2 K/mm3 (4.4-11.0)
[2021-07-25 13:10] LABS: Differential Indicated SCAN CRITERIA MET
[2021-07-25 13:30] LABS: Anisocytosis 2+; Differential Comment SCANNED; Macrocytosis 1+; Microcytosis 1+
[2021-07-25] MEDS: Naproxen 500 MG Tablet PO ×2 (13:54→21:51)
[2021-07-25] MEDS: oxyCODONE 5 MG Tablet PO (17:45)
[2021-07-26] MEDS: oxyCODONE 5 MG Tablet PO ×2 (00:57→07:58)
[2021-07-26 02:25] VITALS: BP 91/52; PULSE 57; RESP 14; TEMP 36.3
[2021-07-26] MEDS: Naproxen 500 MG Tablet PO (05:37)
[2021-07-26] MEDS: Acetaminophen 500 MG Tablet 1000 MG PO (05:37)
[2021-07-26 08:17] VITALS: BP 106/69; PULSE 61; RESP 18; TEMP 36.6; O2SAT 96
[2021-07-26 11:24] LABS: Pathologist Review Reviewed
[2021-07-26] MEDS: Senna/Docusate Sodium 1 Tablet PO (11:38)
[2021-07-26] MEDS: Multivitamins,Ther W-Minerals Tablet 1 TABLET PO (11:40)
--- NOTE | 2021-07-26 12:53 | PN.OBGYN_ITS ---
Subjective Subjective Patient doing well without complaints. Tolerating PO. Ambulating and voiding without difficulty. feeding well. Denies chest pain, shortness of breath, calf pain/swelling, fevers, chills, lightheadedness. Objective Data Objective Data Vital Signs: Vital Signs Temp Pulse Resp BP Pulse Ox 97.8 F 61 18 106/69 96 07/26/21 08:17 07/26/21 08:17 07/26/21 08:17 07/26/21 08:17 07/26/21 08:17 Oxygen Delivery Method Room Air Weight: 158 lb 15.253 oz Body Mass Index (BMI) 26.4 Intake & Output: Intake and Output for Last 24 Hours 07/24/21 07/25/21 07/26/21 23:59 23:59 23:59 Intake Total 2805 / 2805 3213.33 / 3213.33 Output Total 1100 / 1100 3600 / 3600 400 / 400 Balance 1705 / 1705 -386.67 / -386.67 -400 / -400 Lab / Micro Data Result Diagrams: 07/25/21 13:00 Labs: Laboratory Results - last 24 hr 07/24/21 10:15: Diff Path Review Reviewed 07/25/21 13:00: WBC 17.2 H, RBC 3.26 L, Hgb 9.3 L, Hct 29.2 L, MCV 89.6 D, MCH 28.5, MCHC 31.8 L, RDW Std Deviation 58.1 H, RDW Coeff of Zeke 22.8 H, Plt Count 285, MPV 12.1 H, Immature Gran % (Auto) 2.400 H, Neut % (Auto) 68.6, Lymph % (A uto) 17.0 L, [place] % (Auto) 11.4 H, Eos % (Auto) 0.2, Baso % (Auto) 0.4, Absolute Neuts (auto) 11.8 H, Absolute Lymphs (auto) 2.93, Nucleated RBC % 0.3, Differential Comment SCANNED, Diff Path Review May foll, Anisocytosis 2+, Microcytosis 1+, Macrocytosis 1+ Micro: Microbiology 07/24/21 10:32 Nasal Secretion SARS-CoV-2 Antigen (Rapid) - Final ROS Constitutional Constitutional: Reports systems reviewed and no addt'l complaints, except as documented Cardiovascular Cardiovascular: Reports systems reviewed and no addt'l complaints, except as documented Respiratory/Chest Respiratory/Chest: Reports systems reviewed and no addt'l complaints, except as documented Gastrointestinal Gastrointestinal: Reports systems reviewed and no addt'l complaints, except as documented Physical Exam Const alert, oriented x3 and no apparent distress HEENT Head and Scalp: atraumatic Resp normal respiratory effort GI soft to palpation and non-tender Inspection: incision intact, healing well and drainage (none) Bimanual Exam - Vag & Uterus: uterus non-tender Uterus Palpation: uterus fundus firm (below Umbilicus) Assessment & Plan (1) Anti-Y antibody: (2) H/O section: COMMENT: x2 repeat C/S- planning for rpt, RLTCS scheduled for 07/24 @ 12 with JV (3) Anti-S antibody present: COMMENT: Type and cross 2 units to be available at surgery; titers monthly and if 1:16 or higher needs weekly dopplers. 2/4 titer stable, MFM following. In order to get titer antibody number [facility] [place] lab needs ordered and state LabCore Antibody ID#[id number]. (4) H/O section: COMMENT: RLTCS girl 39 (5) Anemia due to blood loss: COMMENT: acute on chronic anemia, transfused 1 unit, repeat Hg over 9 and asymptomatic. patient originally dizzy and bradycardic, hypotensive prior to transfusion PLAN: dc home today doing well
[2021-07-26 14:01] LABS: Pathologist Review Reviewed
[2021-07-27 09:11] LABS: Pathologist Review Reviewed
--- NOTE | 2021-07-30 14:50 | NURSING ---
Follow up completed, patient denies any problems since D/C and was happy with her care espeically the support
== END 2021-07-26 11:50 | disposition home or self-care (01) | DRG 788 ==
PROVIDERS: Obstetrics & Gynecology; Admitting Provider Obstetrics & Gynecology; PCP Family Medicine; Referring Provider Obstetrics & Gynecology; Visit Provider Obstetrics & Gynecology
PROC: 10D00Z1 Extraction of Products of Conception, Low, Open Approach (ICD-10-PCS; CPT 59514; principal; 2021-07-24 11:45)
DX: O34.219 Maternal care for unspecified type scar from previous cesarean delivery (principal); D50.0 Iron deficiency anemia secondary to blood loss (chronic); O36.1930 Maternal care for other isoimmunization, third trimester, not applicable or unspecified; O99.02 Anemia complicating childbirth; Z37.0 Single live birth; Z3A.39 39 weeks gestation of pregnancy
CPT/HCPCS: 59050; 85025; 85027; 86850; 86870; 86900; 86901; 86920; 86922; 87426; 93005; 99218; J7120; P9016; A4216; G0378; J1940; J2405

== ENCOUNTER → 2024-01-07 | Outpatient (CLI) | payer BC, SELFPAY ==
[2024-01-16 11:09] LABS: HPV APTIMA, High Risk Negative (Negative)
== END | disposition home or self-care (01) ==
LOC: LABSPEC 15:57
PROVIDERS: PCP Family Medicine; Referring Provider Nurse Practitioner Family; Visit Provider Nurse Practitioner Family
DX: Z12.4 Encounter for screening for malignant neoplasm of cervix (principal)
CPT/HCPCS: 87624; 88175; G0145

== ENCOUNTER → 2024-01-08 | Outpatient (CLI) | payer BC, SELFPAY ==
--- NOTE | 2024-01-08 13:30 | US_ITS ---
STUDY: ULTRASOUND BREAST - LEFT REASON FOR EXAM: Female, 38 years old. Palpable lump left breast. TECHNIQUE: Axial and longitudinal images of the LEFT breast were performed with a high resolution ultrasound transducer. # OF IMAGES: 31 COMPARISON: None. FINDINGS: LEFT Breast: The palpable area in the lower outer quadrant of the left breast was examined with ultrasound. The palpable lump corresponds to a 1.5 cm x 1.5 cm x 0.4 cm hypoechoic nodule with increased vascularity at the 4:00 position breast at 6 cm from the nipple. Tissue diagnosis recommended. US/Breast Limited Unilateral IMPRESSION: The palpable lump corresponds to 1.5 cm x 1.5 cm x 0.4 cm hypoechoic nodule at the 4:00 position of the breast at 6 cm from the nipple. Biopsy recommended. ASSESSMENT CATEGORY: BIRADS Category 2: Benign. A letter regarding these results will be sent to the patient by the facility within 30 days. Electronically Signed: Jeevan Singh MD at 8:19 EST ,
== END | disposition home or self-care (01) ==
PROVIDERS: PCP Family Medicine; Referring Provider Advanced Practice Midwife; Visit Provider Advanced Practice Midwife
DX: N64.4 Mastodynia (principal); Z98.82 Breast implant status
CPT/HCPCS: 76642

== ENCOUNTER → 2024-01-14 | Outpatient (CLI) | payer BC, SELFPAY ==
--- NOTE | 2024-01-14 14:25 | BRBX_PTH ---
PATIENT: BULL RAJPUT LOC: [facility] U#:[id number] AGE/SX: 38/F ROOM: RE01/14/[address]: Dr. Noé Aldridge MD : 1985 BED: DIS: 01/14/2024 SPEC #: [id number] RECD: 01/14/24 15:06 STATUS: KRYSTA REQ #: [id number] ISAAC: 01/14/24 14:[address]: Noé Aldridge DEPT: SURGICAL PATHOLOGY RECD BY: Jazmine Sanchez ENTERED: 01/15/24 08:14 SP TYPE: BREAST BX OTHR DR: Dr. Celestina Aquino MD Tissues: Left breast, NOS Procedures: Surgery Specimen Level IV HEADER OPERATION: Left breast biopsy PRE-OP DIAGNOSIS: Left breast mass TISSUE SUBMITTED: Left breast tissue Ischemic Time: 1 minute Fixation Time: 29.5 hours MICROSCOPIC DIAGNOSIS Left breast mass, excisional biopsy: Fibroadenoma. Negative for atypia or malignancy. See comment. 01/16/2024 COMMENT The lesion appears to be completely excised. Clinical correlation and appropriate follow up are necessary. MICROSCOPIC DESCRIPTION Slides are reviewed. GROSS DESCRIPTION Received in fixative is one container labeled with the patient's name and designated Left breast tissue. The specimen consists of a piece of sherman-yellow soft tissue measuring 1.0 x 0.7 x 0.5cm. The specimen is inked, serially sectioned and reveal sherman solid cut surfaces. The entire specimen is submitted in one cassette. 01/15/2024 TC:1 CPT:78984
== END | disposition home or self-care (01) ==
LOC: LABSPEC 15:13
PROVIDERS: PCP Family Medicine; Referring Provider Surgery; Visit Provider Surgery
DX: D24.2 Benign neoplasm of left breast (principal)
CPT/HCPCS: 88305